=== PATIENT | male | born 1935 | race Caucasian/White ===

== ENCOUNTER 2017-03-19 13:46 | Observation (INO) | payer MEDICARE, BC ==
[2017-03-19 14:20] LABS: #Basophils 0.1 thou/uL (0.0-0.2); #Eosinphils 0.1 thou/uL (0.0-0.7); #Lymphocytes 1.1 thou/uL (1.20-3.40); #Monocytes 1.2 thou/uL (0.11-0.59); #Neutrophils 16.6 thou/uL (1.40-6.50); %Basophils 0.4 % (0.0-1.0); %Eosinophils 0.6 % (0.0-10.0); %Lymphocytes 5.7 % (21.0-51.0); %Monocytes 6.2 % (0.0-10.0); Hematocrit 44.1 % (42.0-52.0); Mean Platelet Volume 10.8 fL (7.4-10.4); Red Blood Cell (RBC) Count 4.76 mill/uL (4.70-6.10); White Blood Cell (WBC) Count 19.1 thou/uL (4.8-10.8)
[2017-03-19 14:44] LABS: ALT (SGPT) 9 U/L (8-55); AST (SGOT) 16 U/L (5-34); Alkaline Phosphatase 75 U/L (40-150); Anion Gap 15 mmol/L (10-20); BUN (Urea Nitrogen) 18 mg/dL (8.4-25.7); Bilirubin, Total 1.3 mg/dL (0.2-1.2); Calc. Creatinine Clearance 0 mL/min (70-130); Calcium 9.8 mg/dL (7.8-10.44); Carbon Dioxide 23 mmol/L (23-31); Chloride 104 mmol/L (98-107); Estimated GFR-MDRD 63; Globulin 3.4 g/dL (2.4-3.5); Protein, Total 7.7 g/dL (5.8-8.1)
--- NOTE | 2017-03-19 14:46 | RAD ---
PORTABLE AP CHEST: Date: 03-19-17 History: Wheezing, shortness of breath. Comparison: 05-16-16 FINDINGS: Single led left subclavian cardiac pacemaking device remains in place. Cardiac silhouette is enlarged . Pulmonary vasculature is the upper limits of normal. Lungs are otherwise clear. Vascular calcificat ions of the thoracic aorta. There are degenerative changes noted in the spine. No other interval robertson ge. IMPRESSION: Cardiomegaly without overt CHF. POS: [facility]
[2017-03-19 14:48] LABS: Troponin I 0.031 ng/mL (< 0.028)
[2017-03-19] MEDS ORDERED: Albuterol Sulfate 2.5 mg/3 ml Neb ONE (15:24)
[2017-03-19] MEDS ORDERED: Albuterol Sulfate 2.5 mg/0.5 ml Neb ONE (15:24)
[2017-03-19] MEDS ORDERED: Furosemide 40 MG/4 ML VIAL ONE (15:59)
[2017-03-19] MEDS ORDERED: methylPREDNISolone Sod Succ/PF 125 MG/2 ML VIAL ONE (15:59)
[2017-03-19 18:00] LABS: Troponin I 0.054 ng/mL (< 0.028)
[2017-03-19] MEDS ORDERED: Guaifenesin DM 100-10/5 ML UDCUP PO PRN (20:35)
[2017-03-19] MEDS ORDERED: HYDROcodone/Acetaminophen 10/325 mg Tablet PO PRN (20:35)
[2017-03-19] MEDS ORDERED: Dextrose 5% in Water 1,000 ML IV PRN (20:35)
[2017-03-19] MEDS ORDERED: Ondansetron ODT 4 MG TAB PO PRN (20:35)
[2017-03-19] MEDS ORDERED: Albuterol Sulfate 2.5 mg/3 ml Neb NEB PRN (20:35)
[2017-03-19] MEDS ORDERED: Gabapentin 300 MG CAP PO PRN (20:35)
[2017-03-19] MEDS ORDERED: Acetaminophen 325 MG TAB PO PRN (20:35)
[2017-03-19] MEDS ORDERED: Dextrose 50% Abboject 50 ML SYRINGE SLOW IVP PRN (20:35)
[2017-03-19] MEDS ORDERED: HYDROcodone/Acetaminophen 5/325 mg Tablet PO PRN (20:35)
[2017-03-19 20:40] LABS: Troponin I 0.045 ng/mL (< 0.028)
[2017-03-19] MEDS: Atorvastatin Calcium 20 MG TAB PO SCH (21:33)
[2017-03-19] MEDS: Apixaban 5 MG TAB PO SCH (21:33)
[2017-03-19] MEDS: Carvedilol 25 MG TAB PO SCH (21:34)
[2017-03-19] MEDS: INSULIN DETEMIR SC SCH (21:34)
[2017-03-19] MEDS: Famotidine 20 MG TAB PO SCH (21:34)
[2017-03-19] MEDS: ADMIXTURE FEE SC SCH (21:34)
[2017-03-20 00:44] VITALS: BMI 35.2
[2017-03-20 04:54] LABS: #Lymphocytes 0.9 thou/uL (1.20-3.40); #Monocytes 0.2 thou/uL (0.11-0.59); #Neutrophils 12.9 thou/uL (1.40-6.50); %Eosinophils 0.2 % (0.0-10.0); %Lymphocytes 6.6 % (21.0-51.0); %Monocytes 1.3 % (0.0-10.0); Red Blood Cell (RBC) Count 4.44 mill/uL (4.70-6.10); White Blood Cell (WBC) Count 14.1 thou/uL (4.8-10.8)
[2017-03-20 05:03] LABS: Anion Gap 12 mmol/L (10-20); BUN (Urea Nitrogen) 27 mg/dL (8.4-25.7); Calc. Creatinine Clearance 70 mL/min (70-130); Calcium 9.4 mg/dL (7.8-10.44); Carbon Dioxide 23 mmol/L (23-31); Chloride 103 mmol/L (98-107); Estimated GFR-MDRD 54
[2017-03-20] MEDS: HumaLOG 300 UNITS/3 ML VIAL SC PRN ×4 (05:17→21:14)
[2017-03-20] MEDS: Famotidine 20 MG TAB PO SCH ×2 (07:38→19:56)
[2017-03-20] MEDS: Apixaban 5 MG TAB PO SCH ×2 (07:38→19:55)
[2017-03-20] MEDS: Carvedilol 25 MG TAB PO SCH ×2 (07:38→19:56)
[2017-03-20] MEDS: Furosemide 40 MG TAB PO SCH (07:38)
[2017-03-20] MEDS: Clopidogrel Bisulfate 75 MG TAB PO SCH (07:38)
--- NOTE | 2017-03-20 09:32 | RAD ---
TWO VIEWS CHEST: Date: 03-20-17 Comparison: 05-16-16 History: COPD, leukocytosis. FINDINGS: Heart and mediastinal contours are stable. There is stable linear increased linear interstitial densi ty with pulmonary hyperinflation, consistent with the provided history of COPD. There is a single cruz d transvenous pacing device, stable. There is no pneumothorax or pleural fluid. No focal consolidatio n or alveolar edema. Multilevel thoracic spine degenerative change noted with disc space narrowing an d anterior osteophyte formation. IMPRESSION: Stable appearance of the chest. POS: [facility]
[2017-03-20] MEDS ORDERED: Furosemide 40 MG/4 ML VIAL SLOW IVP SCH (13:00)
--- NOTE | 2017-03-20 13:11 | CON ---
DATE OF CONSULTATION: 03/20/2017 SERVICE: Pulmonary Medicine REASON FOR CONSULTATION: Respiratory failure. HISTORY OF PRESENT ILLNESS: The patient is very pleasant with past medical history significant for m ild restrictive lung disease secondary to morbid obesity. He also has known heart disease. He was i n his usual state of health when he started having increasing shortness of breath. He also had dyspn ea on exertion and increasing orthopnea. He presented to the emergency department. He was given a d ose of Lasix and based on his recollection, peed very frequently for a long period of time. The next morning, he was actually much improved. On presentation, he had extensive wheezing. He is being tr eated for COPD exacerbations/acute bronchitis. That being said, at this time, he has returned to his usual state of health. PAST MEDICAL HISTORY: 1. Atrial fibrillation, chronic. 2. Chronic systolic and diastolic heart failure. 3. Hypertension. 4. Type 2 diabetes mellitus. 5. Gastroesophageal reflux disease. 6. Coronary artery disease, status post percutaneous coronary intervention. 7. Renal artery aneurysm. 8. Excision of skin cancer. 9. History of remote transient ischemic attack. PAST SURGICAL HISTORY: 1. Pacemaker placement. 2. Left foot surgery. 3. Pterygium excised from right eye. 4. Cardiac stent x2 in 2012. SOCIAL HISTORY: Negative for alcohol, tobacco or significant illicit drug use. He has over a 50-pac k-year history of smoking. He has no exposure to chemicals, dust, asbestosis or tuberculosis. FAMILY HISTORY: Noncontributory. ALLERGIES: No drug allergies. MEDICATIONS LIST: A list or his inpatient medications were reviewed. Multiple small updates were ma de. REVIEW OF SYSTEMS: Review of systems including general, head, ears, eyes, nose, throat, cardiovascul ar, respiratory, GI, , musculoskeletal, neurologic and skin is negative except as mentioned in the HPI. PHYSICAL EXAMINATION: VITAL SIGNS: Afebrile. Pulse 70, blood pressure 138/63, respirations 20, saturation 94% on room air . GENERAL: The patient is awake, alert, in no apparent distress. LUNGS: There is excellent air entry. I do not appreciate a prolonged expiratory phase. Rhonchi are present at the end of inspiration. No wheezing is appreciated. Faint crackles are evident. HEART: Normal rate, irregular. ABDOMEN: Soft, nontender, nondistended. Bowel sounds positive. MUSCULOSKELETAL: No cyanosis or clubbing. There is 1-2+ pitting in the left lower extremity. There is trace pitting in the right lower extremity. GENITOURINARY: No Garcia. LABORATORY DATA: WBC 14.1, hemoglobin 12.7, platelets 129,000. Prior to initiating steroids, his [facility] blood cell count was normal. INR 1.2. Creatinine 1.28, which is close to his baseline. Basic m etabolic profile is otherwise unremarkable. Troponin 0.045. BNP slightly elevated at 197. Liver fu nction studies are unremarkable except for total bilirubin of 1.3. Hemoglobin A1c 7.2. TSH was prev iously 1.68. Influenza A and B is unremarkable. IMAGING: Chest x-ray demonstrates no acute cardiopulmonary abnormality. On the previous chest x-ray , there was a little bit of cephalization of the bilateral lung dickerson. The lung volumes truthfully are not hyperexpanded. The patient just happens to be extraordinarily tall. There is no intracardia c space or significant flattening of the diaphragm. ASSESSMENT: 1. Acute on chronic systolic and diastolic heart failure. 2. Atrial fibrillation. 3. Acute bronchitis, possible. 4. Mild volume restriction secondary to body habitus without chronic obstructive pulmonary disease. PLAN: The patient will be transitioned over to p.o. steroids which can be interrupted after a total duration of 3 more days. Antibiotics will be limited to 5 days. Ultimately, once the patient arrive s at [facility], he can be considered for transition out of the hospital. I will provide him with a o ne-time dose of 40 mg of Lasix. In the outpatient setting, he may need a slightly larger dose of Las ix to be used on a daily basis. I will continue to follow while the patient remains in house, but my suspicion is he will be discharged in the morning.
--- NOTE | 2017-03-20 16:28 | PDOC.PN ---
- Subjective Encounter Start Date: 03/20/17 Encounter Start Time: 08:45 weaned off o2, breathing is much better. Seen by pulm after i visited the firs ttime and before the 2nd and third. Pulm wants to keep overnight, diurese a little. Suspects more CHF related. PFTs reviewed, mild restriction due to obesity, but no obstruction. nevertheless, pt reportedly audibly wheezing on presentation, cleared by the time o saw him. no fevers or chills, no N/.V/D/C. Pt wanting to stay until tomorrow 10 point ROS performed except as per HPI - Objective Resuscitation Status: Resuscitation Status FULL:Full Resuscitation MAR Reviewed: Yes Vital Signs & Weight: Vital Signs (12 hours) Temp Pulse Resp BP Pulse Ox 03/20/17 15:24 97.5 F L 64 18 150/67 H 93 L 03/20/17 11:30 97.3 F L 70 20 138/63 94 L 03/20/17 10:12 84 16 96 03/20/17 09:03 60 133/68 03/20/17 07:47 97.5 F L 78 16 03/20/17 07:15 97.5 F L 78 16 198/73 H 93 L 03/20/17 06:35 95 03/20/17 06:30 71 16 95 03/20/17 05:11 97.5 F L 65 18 172/74 H 96 Weight Weight 238 lb 11.2 oz I&O: 03/19/17 03/20/17 03/21/17 06:59 06:59 06:59 Intake Total 480 240 Output Total 325 1000 Balance 155 -760 Result Diagrams: 03/20/17 04:05 03/20/17 04:05 Additional Labs: Accuchecks 03/20/17 03/19/17 10:59 21:39 POC Glucose 287 H 302 H Radiology Reviewed by me: Yes EKG Reviewed by me: Yes Phys Exam - Physical Examination Constitutional: NAD HEENT: PERRLA, moist MMs, sclera anicteric, oral pharynx no lesions Neck: no nodes, no JVD, supple, full ROM Respiratory: no wheezing, no rales, clear to auscultation bilateral low pitched end-expiratory rhonchi heard Cardiovascular: RRR, no significant murmur, no rub Gastrointestinal: soft, non-tender, no distention, positive bowel sounds Musculoskeletal: pulses present, edema present Neurological: non-focal, normal sensation, moves all 4 limbs Lymphatic: no nodes Psychiatric: normal affect, A&O x 3 Skin: no rash, normal turgor, cap refill <2 seconds Dx/Plan - Plan * .
[2017-03-20] MEDS: Atorvastatin Calcium 20 MG TAB PO SCH (19:55)
[2017-03-20] MEDS: ADMIXTURE FEE SC SCH (21:14)
[2017-03-20] MEDS: INSULIN DETEMIR SC SCH (21:14)
[2017-03-20 23:29] VITALS: TEMP 97.9
[2017-03-21] MEDS: HumaLOG 300 UNITS/3 ML VIAL SC PRN (06:21)
[2017-03-21 07:50] VITALS: BP 145/73
[2017-03-21] MEDS ORDERED: predniSONE 20 MG TAB PO SCH (08:00)
[2017-03-21] MEDS: Apixaban 5 MG TAB PO SCH (08:04)
[2017-03-21] MEDS: Furosemide 40 MG TAB PO SCH (08:05)
[2017-03-21] MEDS: Carvedilol 25 MG TAB PO SCH (08:05)
[2017-03-21] MEDS: Clopidogrel Bisulfate 75 MG TAB PO SCH (08:05)
[2017-03-21] MEDS: Famotidine 20 MG TAB PO SCH (08:05)
--- NOTE | 2017-03-21 12:42 | DIS ---
DATE OF ADMISSION: 03/19/2017 DATE OF DISCHARGE: 03/21/2017 PRIMARY CARE PHYSICIAN: Cory Ayala M.D. PRIMARY CHANGER FIXER: Cristian Miller M.D. DISCHARGE DIAGNOSES: 1. Acute on chronic systolic congestive heart failure. 2. Mild restrictive lung disease secondary to severe obesity. 3. History of cerebrovascular disease with stroke in 2014. 4. Diabetes mellitus type 2, insulin-dependent. 5. Hypertension. 6. Paroxysmal atrial fibrillation. 7. Renal artery aneurysm, stable. 8. Gastroesophageal reflux disease, chronic. 9. History of skin cancer. 10. History of chronic right eye tumor. CONSULTATIONS: Dr. Cristian Miller with Pulmonary. PROCEDURES: Echocardiogram on 03/19/2017 that showed EF 45%-50%, moderate mitral regurgitation, mode rate to severe tricuspid regurgitation. HOSPITAL COURSE: Mr. Sinclair is a pleasant 81-year-old white male who developed increasing shortness of breath over a couple of week period, certainly noted to be worse in the last 24 hours or so. He n otes it first started when he went to a casino in [place] and walking to the smoke-filled building. He got acutely worse today the morning of admission. Went to his primary care physician and was note d to be audibly wheezing and was sent to the emergency department for evaluation. There, he was found to be hypoxic and in some respiratory distress. He was in atrial fibrillation wi th RVR and subsequently we were called for admit. HOSPITAL COURSE: The patient was seen and examined in the emergency department and placed in observa tion by me. He met sepsis criteria, though he had recently been on steroids, likely elevated white b lood cell count. He was watched overnight, serial cardiac biomarkers were negative. A repeat echoca rdiogram was done that actually showed improvement from his labs in terms of ejection fraction and du e to his initial presentation with wheezing, was started on steroids, nebulizer treatments, and levof loxacin. Overnight 03/19/2017 to 03/20/2017, the patient improved. He was weaned off oxygen. He has some terence et, but present rhonchus breathing on the left hand side. He was seen by Pulmonary and his pulmonary functions were reviewed. At that time, there was no evidence of any obstruction. Dr. Miller noted that this is more related to acute on chronic systolic CHF. He was given some Lasix and watched ove r one more night. Today, his breathing slightly better. He has been urinating well. He has had no chest pain and was otherwise stable for discharge with outpatient followup. The patient was seen and examined on the day of discharge. Discharge plan and disposition was discussed with the patient fac e to face at the bedside. DISCHARGE MEDICATIONS: 1. Eliquis 5 mg p.o. b.i.d. 2. Lipitor 20 mg p.o. at bedtime. 3. Carvedilol 25 mg p.o. b.i.d. 4. Plavix 75 mg daily. 5. Lasix 40 mg p.o. daily. New medication prescription sent with 2 refills for a month supply. 6. Lantus 46 units subcu b.i.d. 7. Levaquin 500 mg p.o. daily for 3 more days. 8. Prednisone 20 mg p.o. daily for 3 more days. Prescription sent for those. 9. Zantac 150 mg p.o. b.i.d. FOLLOWUP APPOINTMENTS: 1. Primary care physician in [address] Miller in 2-3 weeks. DISCHARGE ACTIVITY: Per cardiopulmonary limits. DISCHARGE DIET: Diabetic, heart healthy diet with low sodium. Patient was instructed to keep his followup appointments. He was asked to return to emergency depart ment for worsening status or decompensation at home.
--- NOTE | 2017-03-21 13:50 | HP ---
DATE OF ADMISSION: 03/19/2017 PRIMARY CARE PHYSICIAN: Cory Ayala M.D. CHIEF COMPLAINT: Shortness of breath and wheezing. HISTORY OF PRESENT ILLNESS: Mr. Sinclair is a very pleasant 81-year-old white male with a history of c erebrovascular disease, diabetes, hypertension, and paroxysmal atrial fibrillation who presented to e mergency department after being sent by his primary care physician to the ER. Patient stated that he went to the [facility] in [place] on 03/04/2017. Immediately upon arriving the re, he noticed the area was smoke-filled, he developed rhinorrhea and hacking cough. He stayed there for 2 days and then came back on 03/06/2017. He went to his primary care physician's office and was given a course of doxycycline and a shot of steroids, I suspect was probably Kenalog. He initially got better, but last couple of days, it gotten worse. Today, he got more acutely short of breath and started having some audible wheezing. He presented to his primary care physician's office and was triaged and sent to the emergency department for more ur gent evaluation. He denies any sputum production, no fevers or chills, no chest pain, or night sweats. He has had no diarrhea or constipation. In the Emergency Department, the nurses report he was audibly wheezing on arrival. He was given Solu -Medrol, antibiotics, and nebulizer treatments and we were called for admission. On arrival, his lungs were clear, but he was in atrial fibrillation with rapid ventricular response. PAST MEDICAL HISTORY: 1. Severe vascular disease with stroke in 2014. 2. Diabetes mellitus type 2, insulin-dependent. 3. Hypertension. 4. Paroxysmal atrial fibrillation. 5. Renal artery aneurysm. 6. GERD. 7. History of skin cancer status post removal. 8. Right eye tremor. PAST SURGICAL HISTORY: Includes, 1. Pacemaker placement in 2007. 2. Left foot surgery on the bones. 3. Right eye surgery for a pterygium. 4. He had a PCI with stent x2 on separate occasions and bilateral cataract replacement. HOME MEDICATIONS: 1. Eliquis 5 mg p.o. b.i.d. 2. Lipitor 20 mg p.o. at bedtime. 3. Coreg 25 mg p.o. b.i.d. 4. Plavix 75 mg daily. 5. Lasix 40 mg daily. 6. Gabapentin 300 mg p.o. t.i.d. p.r.n. 7. Lantus 46 units subcu b.i.d. 8. Zantac 150 mg p.o. b.i.d. 9. Nitroglycerin sublingual 0.4 mg sublingual every 5 minutes p.r.n. chest pain. 10. Recently on doxycycline for a 7-day course and recently had a steroid injection. ALLERGIES: NKDA. FAMILY HISTORY: Negative for clotting or bleeding disorder, no immune dysfunction. SOCIAL HISTORY: Occasional for social alcohol every other week or so, has a history of tobacco in th e past and smoked up to 2 packs a day for some 20-30 years. He quit many years ago. He is , monogamous. He has no recent travel other than to [place]. REVIEW OF SYSTEMS: A 10-point review of systems was performed, negative for all other systems except stated per HPI. PHYSICAL EXAMINATION: VITAL SIGNS: Temperature 99.4, pulse 111, blood pressure 187/82, respiratory rate 25, satting 95% on 2 liters. GENERAL: He is awake. He is alert. He is oriented x3. He is an obese white male, appears to be in no acute distress. HEENT: Normocephalic, atraumatic. His pupils are equal and round bilaterally. He had bilateral pse udophakia. He has a "chronic twitch of his right eye." Mucous membranes are moist. He has no visib le lesions or thrush. NECK: Supple, without lymphadenopathy, JVD, or thyromegaly. CHEST: Lungs are currently clear to auscultation bilaterally. He has some faint bibasilar crackles, no rhonchi, and no wheezing. There is no prolonged expiratory phase. CARDIOVASCULAR: He is tachycardic and irregularly irregular. He has no audible appreciable murmurs. He does have a 3/6 holosystolic murmur best heard over the right upper sternal border. ABDOMEN: Obese, nontender, nondistended. He has had normoactive bowel sounds. There is no rebound, rigidity, or guarding. He is too obese for me to be able to palpate internal organs. EXTREMITIES: Showed 2+ bilateral lower extremity edema, left more than right. No cyanosis. SKIN: Warm, moist, and well perfused without any rashes or lesions. NEUROLOGIC: Shows cranial nerves II-XII grossly intact without any focal neurologic deficit. He has normal speech pattern, 5/5 strength in all 4 of his extremities. MUSCULOSKELETAL: Large joints normal to inspection. He has no inflamed or hot joints and no palpabl e joint effusions. LABORATORY DATA: CMP is within normal limits. Creatinine 1.12, sodium 137. Liver functions are nor mal. Total bilirubin is 1.3. His CBC showed a white count of 19.1 with 87% granulocytes and no band s, hemoglobin 14.1, hematocrit of 44.1, platelet 162,000. His chest x-ray showed cardiomegaly and no evidence of pulmonary edema, no Rip B lines and no infiltrates. ASSESSMENT AND PLAN: 1. Acute hypoxemic respiratory failure: Patient is acting like someone with chronic obstructive pul monary disease. He saw Dr. Miller a few months ago and had PFTs that revealed only mild restrictive pattern. Nevertheless, we will start him on steroids, nebulizer treatments, and some levofloxacin. He received Rocephin and azithromycin in the emergency department. We will ask Dr. Miller to evalu ate for his opinion. 2. Possible acute exacerbation of chronic obstructive pulmonary disease: Not in line with his previ ous testing. We will get Dr. Yeh's input. 3. Bilateral lower extremity edema, normal for the patient he says. In looking back, he did have an echocardiogram with some systolic chronic congestive heart failure. We will get a 2D echocardiogram . 4. History of paroxysmal atrial fibrillation. He is in atrial fibrillation now. He has also had ra pid ventricular response. Continue home medications including Coreg. We will reevaluate overnight. Watch him on telemetry. 5. Hypertension, essential. Continue home medications. 6. Diabetes mellitus type 2, insulin-dependent. We will continue his insulin and sliding scale for correction. Place the patient in observation overnight, I will monitor him on telemetry. We will ge t Pulmonary's input. We will follow up on the recommendations.
== END 2017-03-21 10:14 | disposition home or self-care (01) ==
LOC: ERS 13:46 → ERHOLD 16:02 → 2SW 20:04
PROVIDERS: ADMIT Internal Medicine Infectious Disease; ATTEND Internal Medicine Infectious Disease
DX: I11.0 Hypertensive heart disease with heart failure (principal); I50.23 Acute on chronic systolic (congestive) heart failure; J98.4 Other disorders of lung; E11.9 Type 2 diabetes mellitus without complications; I48.0 Paroxysmal atrial fibrillation; I72.2 Aneurysm of renal artery; K21.9 Gastro-esophageal reflux disease without esophagitis; D49.89 Neoplasm of unspecified behavior of other specified sites; I25.10 Atherosclerotic heart disease of native coronary artery without angina pectoris; F17.210 Nicotine dependence, cigarettes, uncomplicated; E66.01 Morbid (severe) obesity due to excess calories; Z68.39 Body mass index [BMI] 39.0-39.9, adult; Z79.4 Long term (current) use of insulin; Z79.899 Other long term (current) drug therapy; Z95.0 Presence of cardiac pacemaker; Z95.5 Presence of coronary angioplasty implant and graft; Z98.890 Other specified postprocedural states; Z85.828 Personal history of other malignant neoplasm of skin; Z86.73 Personal history of transient ischemic attack (TIA), and cerebral infarction without residual deficits
CPT/HCPCS: 71010; 71020; 80048; 80053; 82553; 82962 ×3; 83880; 84484 ×2; 85025 ×2; 87804 ×2; 93005; 93306; 94640 ×3; 94760; 96374; 96375; 96376 ×2; 99285; G0378; 36415; 36416; J1815; J1940; J2920; J2930; J7506; J7611; J7620

== ENCOUNTER 2017-05-21 11:45 | Inpatient (IN) | payer MEDICARE, BC ==
--- NOTE | 2017-05-21 12:21 | RAD ---
PORTABLE CHEST: Date: 05/21/17 HISTORY: Cough. COMPARISON: Portable film of 03/19/17. FINDINGS: Heart size is mildly prominent, but stable. Single lead pacer again noted. Lungs appear clear of infi ltrate. Vascular markings are upper normal and stable. IMPRESSION: No acute interval change noted. POS: [facility]
[2017-05-21 12:33] LABS: #Eosinphils 0.2 thou/uL (0.0-0.7); #Lymphocytes 1.4 thou/uL (1.20-3.40); #Monocytes 0.8 thou/uL (0.11-0.59); #Neutrophils 6.3 thou/uL (1.40-6.50); %Basophils 0.4 % (0.0-1.0); %Eosinophils 2.2 % (0.0-10.0); %Lymphocytes 15.8 % (21.0-51.0); %Monocytes 9.2 % (0.0-10.0); %Neutrophils 72.5 % (42.0-75.0); Hemoglobin 8.8 g/dL (14.0-18.0); Mean Corpuscular HGB CONC 31.2 g/dL (32.0-36.0); Mean Corpuscular Hemoglobin 27.2 pg (27.0-31.0); Mean Corpuscular Volume 87.3 fl (80.0-94.0); Mean Platelet Volume 9.5 fL (7.4-10.4); Platelet Count 189 thou/uL (130-400); RBC Distribution Width 15.6 % (11.5-14.5); Red Blood Cell (RBC) Count 3.22 mill/uL (4.70-6.10); White Blood Cell (WBC) Count 8.7 thou/uL (4.8-10.8)
[2017-05-21 12:59] LABS: ALT (SGPT) 10 U/L (8-55); AST (SGOT) 13 U/L (5-34); Albumin 3.6 g/dL (3.4-4.8); Alkaline Phosphatase 65 U/L (40-150); Anion Gap 13 mmol/L (10-20); BUN (Urea Nitrogen) 22 mg/dL (8.4-25.7); Bilirubin, Total 0.6 mg/dL (0.2-1.2); CK (CPK) 133 U/L (30-200); Calc. Creatinine Clearance 0 mL/min (70-130); Calcium 9.2 mg/dL (7.8-10.44); Carbon Dioxide 22 mmol/L (23-31); Chloride 108 mmol/L (98-107); Estimated GFR-MDRD 60; Glucose 143 mg/dL (83-110); Potassium 4.3 mmol/L (3.5-5.1); Protein, Total 6.6 g/dL (5.8-8.1); Sodium 139 mmol/L (136-145)
[2017-05-21 13:02] LABS: CKMB 2.5 ng/mL (0-6.6); Troponin I 0.043 ng/mL (< 0.028)
[2017-05-21] MEDS ORDERED: Aspirin 325 MG TAB ONE (13:48)
[2017-05-21] MEDS ORDERED: Furosemide 40 MG TAB ONE (13:48)
--- NOTE | 2017-05-21 14:53 | HP ---
PRIMARY CARE PHYSICIAN: Cory Ayala M.D. REASON FOR ADMISSION: Acute on chronic systolic and diastolic congestive heart failure exacerbation, bronchitis, symptomatic anemia. HISTORY OF PRESENT ILLNESS: An 81-year-old male who has underlying history of systolic heart failure . His EF was 45% to 50%. He also has underlying moderate aortic regurgitation and severe tricuspid regurgitation and moderate mitral regurgitation. The patient is on 2 different blood thinner medicat ions with Plavix and Eliquis. He came to the emergency room with complaint of increasing shortness o f breath, which is getting worse with lying down position. The patient also has cough productive sca nt amount of sputum. The patient also reports that for the last several days, he noticed black tarry stool. He denies any epigastric pain. He denies any vomiting. He denies any epigastric abdominal pain. He denies any hematemesis. He denies any nausea or vomiting. The patient also has increased bilateral lower extremity edema. He gained weight. He is bothered by cough and shortness of breath and that was affecting his quality of life. He was feeling lately mor e fatigued, dizzy, and weak. The patient reports that he is not on any iron supplement, but his stool is black. His hemoglobin to day in our hospital is 8.8. When he was discharged from our hospital in February, at that time, his hemoglobin was 12.7. Today, his troponin is elevated as well as BNP is elevated. When I saw this pa tient at that time, the patient was wheezing in his both lung dickerson. The patient's was present at bedside. The patient denies any UTI symptoms. He denies any fever, chills, runny nose, sore throat, or flu-li ke illness. REVIEW OF SYSTEMS: Please see my HPI for pertinent positives and negatives. All other review of sys tems reviewed and negative except as mentioned in the HPI. Constitutional: Weight loss or gain, ability to conduct usual activities. Skin: Rash, itching. Eyes: Double vision, pain. ENT/Mouth: Nose bleeding, neck stiffness, pain, tenderness. Cardiovascular: Palpitations, dyspnea on exertion, orthopnea. Respiratory: Shortness of breath, wheezing, cough, hemoptysis, fever or night sweats. Gastrointestinal: Poor appetite, abdominal pain, heartburn, nausea, vomiting, constipation, or diarrhea. Genitourinary: Urgency, frequency, dysuria, nocturia. Musculoskeletal: Pain, swelling. Neurologic/Psychiatric: Anxiety, depression. Allergy/Immunologic: Skin rash, bleeding tendency. ALLERGIES: No known drug allergies. CURRENT HOME MEDICATIONS: Coreg 25 mg p.o. twice daily, Lipitor 10 mg p.o. at bedtime, Lasix 40 mg p .o. daily, Plavix 75 mg p.o. daily, ranitidine 150 mg p.o. daily, gabapentin 300 mg 3 times daily, El iquis 5 mg p.o. daily. PAST MEDICAL HISTORY: Chronic atrial fibrillation, chronic anticoagulation with Eliquis, hypertensio n, diabetes type 2, dyslipidemia, gastroesophageal reflux disease, coronary artery disease with stent , history of skin cancer, renal artery aneurysm, history of embolic CVA. PAST SURGICAL HISTORY: Pacemaker placement, left foot surgery, pterygium removal from right eye, car diac catheterization and stent placement in 2012. PAST PSYCHIATRIC HISTORY: Reviewed and negative. SOCIAL HISTORY: The patient is . He drinks alcohol socially every week. He is a former smok er. He quit smoking more than 10 years ago. He is retired and lives at home with his . FAMILY HISTORY: Positive for throat cancer in his father. No family history of coronary artery dise ase, stroke, or cancer. EMERGENCY ROOM COURSE: The patient was given Lasix 40 mg, aspirin 324 mg, and DuoNeb. PHYSICAL EXAMINATION: VITAL SIGNS: On arrival, blood pressure 157/73, pulse 88, respiratory rate 26, temperature 97.8, sat uration 95% on room air, weight 122.4 kilograms. GENERAL: The patient is currently alert, awake, mild distress due to cough and shortness of breath. HEAD: Normocephalic, atraumatic. The patient does have residual right facial droop from previous CV A. EYES: Pupils round, reactive to light. Extraocular muscles intact. ENT: Oropharynx within normal limits. Pale mucous membranes. No pharyngeal erythema. No exudate. NECK: Supple, no JVD, no thyromegaly, no carotid bruit, no jugular venous distention. LUNGS: Bilateral end expiratory wheezing. Few rales noted. CARDIAC: S1, S2 irregular. Systolic murmur present parasternal as well as diastolic murmur present at apex. ABDOMEN: Morbid obesity limiting examination. No peritoneal sign. No organomegaly. No mass. No s uprapubic tenderness. BACK: Unremarkable. No CVA tenderness. EXTREMITIES: Upper extremity passive movements of all joints are normal. Lower extremity: Bilatera l +3 pitting edema noted both lower extremities. Good distal pulsation. SKIN: No skin rash. HEMATOLOGICAL: No lymphadenopathy. PSYCHIATRIC: Normal affect. NEUROLOGIC: Nonfocal examination. SIGNIFICANT LABORATORY DATA: EKG showing pacemaker rhythm, infrequent frequent premature ventricular complexes. Chest x-ray based on my review, cardiomegaly, no pulmonary vascular congestion. CBC: W BC 8.7, hemoglobin 8.8, platelets 189. BMP: Sodium 139, potassium 4.3, chloride 108, carbon dioxide 22, anion gap 13, BUN 22, creatinine 1.17, glucose 143, calcium 9.2. LFT: AST 13, ALT 10, alkaline phosphatase 65, albumin 3.6. CK 133, CK-MB 2.5, troponin I 0.043, BNP 483.3. ASSESSMENT AND PLAN: 1. Acute on chronic systolic and diastolic congestive heart failure. This patient has elevated BNP, though his chest x-ray does not report pulmonary vascular congestion, but this patient clinically miranda s significant wheezing bilaterally and scattered rales. He has bilateral lower extremity edema as we ll as orthopnea, cough, and dyspnea on exertion. All this contributes to his worsening of underlying heart failure. I am suspecting that his worsening anemia might have precipitated his heart failure as well. At this point, the patient will require admission. We will continue DuoNeb therapy every 4 hourly. We will continue Lasix 40 mg IV b.i.d. Fluid restriction 1500 mL per day. We will also gi ve him a dose of Zaroxolyn for diuresis. We will continue half-dose of Coreg 12.5 mg twice daily. D uring this admission, we will consider adding RAJIV inhibitor and ARB. We will monitor closely on tele metry floor. We will monitor input and output chart, daily weight. We will replace electrolytes as needed basis. 2. Elevated troponin. Looking at his old record, the patient has chronically elevated troponin, lik rafael due to demand ischemia. We will do serial cardiac enzymes x3 to rule out acute coronary syndrome . 3. Anemia, symptomatic. This patient has generalized weakness, fatigue, dizziness. His hemoglobin significantly dropped from 12.7 in February and 8.8 today. This patient also gives history of melano tic stool. We will check stool for guaiac. We will check ferritin level. We will repeat CBC tomorr ow. If stool for guaiac is positive, then we will consider GI evaluation. We will continue with Pro tonix 40 mg p.o. daily. Until we verify and rule out gastrointestinal bleed, we will hold on antipla telet therapy including Plavix and basis. 4. Dyslipidemia. We will continue Lipitor 20 mg p.o. at bedtime. 5. Coronary artery disease with history of stent. At this point, because of suspected bleeding, we will hold Plavix and Eliquis therapy. We will continue half dose of Coreg because of wheezing along with statin therapy. 6. Moderate mitral regurgitation, aortic regurgitation, and tricuspid regurgitation based on echocar diography. 7. Morbid obesity. Dietary education given, weight loss education given. 8. Atrial fibrillation, chronic. Currently rate controlled. We will hold on anticoagulation therap y because of suspected melanotic stool. 9. Hypertension. We will continue nitropatch q.8 hourly along with Lasix, Zaroxolyn, and Coreg. We will also consider adding RAJIV inhibitor and ARB during this admission. 10. Gastroesophageal reflux disease. We will continue Pepcid 20 mg p.o. b.i.d. 11. Peripheral neuropathy. We will continue gabapentin 300 mg p.o. 3 times daily. 12. Deep venous thrombosis prophylaxis. Sequential compression device boots only. 13. Gastrointestinal prophylaxis, Pepcid 20 mg p.o. b.i.d. 14. Code status: The patient is FULL CODE. The patient's is surrogate decision maker. Disposition plan based on clinical course. We are expecting patient's stay in the hospital more than 2 midnights. Plan of care discussed with the patient in detail.
[2017-05-21] MEDS ORDERED: Milk Of Magnesia 30 ML UDCUP PO PRN (17:46)
[2017-05-21] MEDS ORDERED: Eucerin (Mineral Oil/Petrolatum,White) 30 gm Jar TOP PRN (17:46)
[2017-05-21] MEDS ORDERED: Diabetic Tussin 200 MG/10 ML UDCUP PO PRN (17:46)
[2017-05-21] MEDS ORDERED: Artificial Tear Sol 15 ML BOT EA EYE PRN (17:46)
[2017-05-21] MEDS ORDERED: Dextrose 5% in Water 1,000 ML IV PRN (17:46)
[2017-05-21] MEDS ORDERED: Dextrose 50% Abboject 50 ML SYRINGE SLOW IVP PRN (17:46)
[2017-05-21] MEDS ORDERED: Nitroglycerin 0.4 MG TAB (25 Tab Bottle) SL PRN (17:46)
[2017-05-21] MEDS ORDERED: Acetaminophen 325 MG TAB PO PRN (17:46)
[2017-05-21] MEDS ORDERED: Chloraseptic Spray 180 ml Bottle PO PRN (17:46)
[2017-05-21] MEDS ORDERED: hydrALAZINE 20 MG/ML VIAL SLOW IVP PRN (17:46)
[2017-05-21] MEDS ORDERED: Ondansetron ODT 4 MG TAB PO PRN (17:46)
[2017-05-21] MEDS ORDERED: Zolpidem Tartrate 5 MG TAB PO PRN (17:46)
[2017-05-21] MEDS ORDERED: Sodium Chloride 0.65% Nasal 44 ML BOT EA NARE PRN (17:46)
[2017-05-21] MEDS ORDERED: Senokot 8.6 MG TAB PO PRN (17:46)
[2017-05-21] MEDS ORDERED: HYDROcodone/Acetaminophen 5/325 mg Tablet PO PRN (17:46)
[2017-05-21] MEDS ORDERED: Loratadine 10 MG TAB PO PRN (17:46)
[2017-05-21] MEDS ORDERED: Mag-Al 1200 mg/1200 mg/30 ML UDCUP PO PRN (17:46)
[2017-05-21] MEDS ORDERED: Loperamide HCl 2 MG CAP PO PRN (17:46)
[2017-05-21] MEDS ORDERED: Ondansetron HCl/PF 4 MG/2 ML Vial IVP PRN (17:46)
[2017-05-21 17:51] VITALS: BMI 40.3
[2017-05-21] MEDS ORDERED: Gabapentin 300 MG CAP PO SCH (18:15)
[2017-05-21 18:36] LABS: CKMB 2.7 ng/mL (0-6.6); Troponin I 0.045 ng/mL (< 0.028)
[2017-05-21 19:47] LABS: Iron Binding Capacity, Total 325 mcg/dL (261-462)
[2017-05-21 19:48] LABS: Iron 13 ug/dL (65-175)
[2017-05-21] MEDS ORDERED: Atorvastatin Calcium 20 MG TAB PO SCH (21:00)
[2017-05-21 21:13] LABS: CKMB 2.2 ng/mL (0-6.6)
[2017-05-21] MEDS: Cefdinir 300 MG CAP PO SCH (23:44)
[2017-05-21] MEDS: Carvedilol 6.25 MG TAB PO SCH (23:44)
[2017-05-21] MEDS: guaiFENesin ER 600 MG TAB PO SCH (23:44)
[2017-05-21] MEDS: Famotidine/PF 20 mg/2ml Vial SLOW IVP SCH (23:44)
[2017-05-22 04:58] LABS: #Eosinphils 0.1 thou/uL (0.0-0.7); #Lymphocytes 0.8 thou/uL (1.20-3.40); #Monocytes 0.3 thou/uL (0.11-0.59); #Neutrophils 8.6 thou/uL (1.40-6.50); %Basophils 0.1 % (0.0-1.0); %Eosinophils 0.7 % (0.0-10.0); %Monocytes 2.7 % (0.0-10.0); %Neutrophils 88.6 % (42.0-75.0); Hemoglobin 8.6 g/dL (14.0-18.0); Mean Corpuscular HGB CONC 30.6 g/dL (32.0-36.0); Mean Corpuscular Hemoglobin 26.5 pg (27.0-31.0); Mean Corpuscular Volume 86.7 fl (80.0-94.0); Mean Platelet Volume 9.8 fL (7.4-10.4); Platelet Count 187 thou/uL (130-400); RBC Distribution Width 15.8 % (11.5-14.5); Red Blood Cell (RBC) Count 3.26 mill/uL (4.70-6.10); White Blood Cell (WBC) Count 9.7 thou/uL (4.8-10.8)
[2017-05-22 05:23] LABS: Anion Gap 13 mmol/L (10-20); BUN (Urea Nitrogen) 20 mg/dL (8.4-25.7); Calc. Creatinine Clearance 91 mL/min (70-130); Calcium 9.5 mg/dL (7.8-10.44); Carbon Dioxide 23 mmol/L (23-31); Chloride 105 mmol/L (98-107); Estimated GFR-MDRD 64; Glucose 219 mg/dL (83-110); Magnesium 2.1 mg/dL (1.6-2.6); Potassium 4.4 mmol/L (3.5-5.1); Sodium 137 mmol/L (136-145); Uric Acid 7.8 mg/dL (3.5-7.2)
[2017-05-22] MEDS ORDERED: Furosemide 40 MG/4 ML VIAL SLOW IVP SCH (06:00)
[2017-05-22] MEDS ORDERED: Sodium Chloride 0.9% 10 ML ONE (07:27)
[2017-05-22] MEDS ORDERED: Metolazone 5 MG TAB PO SCH (08:30)
[2017-05-22] MEDS: Carvedilol 6.25 MG TAB PO SCH ×2 (08:39→21:32)
[2017-05-22] MEDS: Cefdinir 300 MG CAP PO SCH ×2 (08:39→21:32)
[2017-05-22] MEDS: Lisinopril 5 MG TAB PO SCH (08:40)
[2017-05-22] MEDS: Gabapentin 300 MG CAP PO SCH ×3 (08:40→21:33)
[2017-05-22] MEDS: Famotidine/PF 20 mg/2ml Vial SLOW IVP SCH ×2 (08:41→21:32)
[2017-05-22] MEDS: guaiFENesin ER 600 MG TAB PO SCH ×2 (08:41→21:33)
--- NOTE | 2017-05-22 13:33 | PDOC.PN ---
- Subjective Encounter Start Date: 05/22/17 Encounter Start Time: 13:20 Subjective: f/u for ? CHF, symptomatic anemia and heme + stools. Less SOB today -: but feels weak. No CP, stool seems browner today. - Objective Resuscitation Status: Resuscitation Status FULL:Full Resuscitation MAR Reviewed: Yes Vital Signs & Weight: Vital Signs (12 hours) Temp Pulse Resp BP BP Pulse Ox 05/22/17 12:08 98.8 F 66 19 143/65 H 95 05/22/17 10:43 80 16 05/22/17 08:40 70 164/86 H 05/22/17 08:39 164/86 H 05/22/17 08:35 98.2 F 74 19 164/86 H 95 05/22/17 07:23 70 18 05/22/17 03:41 97.9 F 64 20 147/65 H 93 L 05/22/17 03:18 69 18 94 L Weight Weight 265 lb I&O: 05/21/17 05/22/17 05/23/17 06:59 06:59 06:59 Intake Total 240 120 Output Total 950 Balance 240 -830 Result Diagrams: 05/22/17 04:07 05/22/17 04:07 Additional Labs: Accuchecks 05/22/17 05/22/17 11:39 06:26 POC Glucose 328 H 221 H EKG Reviewed by me: Yes (Tele - A-fib in 90's) Phys Exam - Physical Examination Constitutional: NAD HEENT: PERRLA, oral pharynx no lesions Neck: no JVD, supple diminished in bases Cardiovascular: irregular Gastrointestinal: soft, non-tender, no distention, positive bowel sounds Musculoskeletal: pulses present, edema present Neurological: normal sensation, moves all 4 limbs Psychiatric: A&O x 3 Skin: normal turgor, cap refill <2 seconds Dx/Plan (1) GI bleed Code(s): K92.2 - GASTROINTESTINAL HEMORRHAGE, UNSPECIFIED Status: Acute Comment: Likely due to Plavix and Eliquis, PPI, consult GI for endoscopy, serial H/H (2) Anemia due to blood loss, acute Code(s): D62 - ACUTE POSTHEMORRHAGIC ANEMIA Status: Acute Comment: symptomatic anemia secondary to acute/subacute loss, hold all NSAIDs and anticoagulation, Protonix 40mg daily, GI consult (3) CKD (chronic kidney disease), stage III Code(s): N18.3 - CHRONIC KIDNEY DISEASE, STAGE 3 (MODERATE) Status: Chronic Comment: Watch renal function, avoid nephrotoxins and limit contrast media exposure (4) Chronic atrial fibrillation Code(s): I48.2 - CHRONIC ATRIAL FIBRILLATION Status: Chronic Comment: Rate variable, hold anticoagulation due to GI bleed (5) Chronic anticoagulation Code(s): Z79.01 - MANAGER HI (CURRENT) USE OF ANTICOAGULANTS Status: Chronic Comment: See above - Plan DVT proph w/SCDs Stable currently -: Consult GI service for endoscopy -: Hold all NSAIDs and anticoagulation -: Start Protonix 40mg daily -: AM lab: BMP, CBC * Change Lasix 40mg po daily
[2017-05-22] MEDS ORDERED: PROVENTIL INHALER 6.7 G (200 INHALATIONS) INH PRN (13:53)
[2017-05-22] MEDS: HumaLOG 300 UNITS/3 ML VIAL SC PRN ×2 (16:31→21:33)
--- NOTE | 2017-05-22 17:06 | CON ---
DATE OF CONSULTATION: 05/22/2017 CHIEF COMPLAINT: Shortness of breath, weakness, and anemia. HISTORY OF PRESENT ILLNESS: Mr. Sinclair is an 81-year-old man who presented to the emergency room yes terday with progressive shortness of breath and weakness on exertion. He reports having one black st ool per day over the last 2 or 3 weeks. This morning, he had a hard brown stool. He has been on Nadia vix and Jose due to history of atrial fibrillation and stroke and CHF. He has had no nausea or vomi ting. No abdominal pain. His weight has been stable. He was discharged from the hospital back in [facility] at which point his hemoglobin was 12.7. His hemoglobin has dropped down to 8.8 on presentati on this hospitalization. PAST MEDICAL HISTORY: Prior stroke, diabetes mellitus on insulin, hypertension, atrial fibrillation, skin cancer resected, and gastroesophageal reflux disease. He reports last colonoscopy was in [place] 10 years ago and was negative. His CHF, he had echocardiogram back in 02/2017 which showed modera te mitral regurgitation and moderate aortic regurgitation with moderate to severe tricuspid regurgita tion and an EF of 45%-50%. PAST SURGICAL HISTORY: Pacemaker placement, eye surgery, cardiac catheterization, and foot surgery. SOCIAL HISTORY: He is a former smoker, history of drinking alcohol once a week. No drugs. FAMILY HISTORY: Negative for GI malignancy. ALLERGIES: No known drug allergies. CURRENT MEDICATIONS: Atorvastatin, carvedilol, cefdinir, furosemide, gabapentin, insulin, lisinopril , methylprednisolone, and pantoprazole. REVIEW OF SYSTEMS: Negative x10 systems reviewed except as stated in the history of present illness. PHYSICAL EXAMINATION: VITAL SIGNS: Temperature 98.8, pulse 60, and blood pressure 143/65. GENERAL: He is in no acute distress, alert and oriented x3. HEENT: Eyes have no scleral icterus. Oropharynx is clear, without lesions. NECK: No cervical or supraclavicular lymphadenopathy. LUNGS: Clear to auscultation bilaterally. HEART: Regular rate and rhythm. ABDOMEN: Soft, nontender, nondistended. Bowel sounds are present. EXTREMITIES: 2+ to 1+ pitting lower extremity edema. LABORATORY DATA: White blood cell count 9.7, hemoglobin 8.6, MCV 86.7, platelets 187, creatinine 1.1 0, and hemoglobin A1c from January was 7.2. IMPRESSION: Acute anemia associated with black stools. He is Hemoccult positive. He has been on Pl avix and Eliquis. He does have signs of overt bleeding today. He reports passing two hard brown sto ols this morning. In light of the reported black stools daily over the last 2 or 3 weeks, we will st art with evaluation of the upper gastrointestinal tract first. He does not appear to have been on a proton pump inhibitor chronically. RECOMMENDATIONS: 1. Pantoprazole. 2. Esophagogastroduodenoscopy tomorrow.
[2017-05-22] MEDS ORDERED: INSULIN GLARGINE HUM REC ANLOG 46 UNIT SQ SCH (21:00)
[2017-05-22] MEDS: Atorvastatin Calcium 20 MG TAB PO SCH (21:31)
[2017-05-22] MEDS: PRE FILLED SC SCH (21:33)
[2017-05-22] MEDS: INSULIN DETEMIR SC SCH (21:33)
[2017-05-23 05:33] LABS: Anion Gap 15 mmol/L (10-20); BUN (Urea Nitrogen) 28 mg/dL (8.4-25.7); Calc. Creatinine Clearance 76 mL/min (70-130); Calcium 9.5 mg/dL (7.8-10.44); Carbon Dioxide 25 mmol/L (23-31); Chloride 102 mmol/L (98-107); Estimated GFR-MDRD 53; Glucose 378 mg/dL (83-110); Potassium 4.5 mmol/L (3.5-5.1); Sodium 137 mmol/L (136-145)
[2017-05-23] MEDS: HumaLOG 300 UNITS/3 ML VIAL SC PRN ×2 (05:56→17:45)
[2017-05-23 06:49] LABS: Band 14 % (5-11); Lymphocytes 11 % (21-51); MDiff Complete? YES; Mean Corpuscular HGB CONC 30.5 g/dL (32.0-36.0); Mean Corpuscular Hemoglobin 26.4 pg (27.0-31.0); Mean Corpuscular Volume 86.5 fl (80.0-94.0); Mean Platelet Volume 9.7 fL (7.4-10.4); Monocytes 2 % (0-10); Neutrophil 73 % (42-75); Platelet Count 219 thou/uL (130-400); RBC Distribution Width 15.7 % (11.5-14.5); Red Blood Cell (RBC) Count 3.41 mill/uL (4.70-6.10); White Blood Cell (WBC) Count 12.7 thou/uL (4.8-10.8)
[2017-05-23] MEDS: Carvedilol 6.25 MG TAB PO SCH ×2 (09:19→21:25)
[2017-05-23] MEDS: Gabapentin 300 MG CAP PO SCH ×3 (09:20→21:26)
[2017-05-23] MEDS: Famotidine/PF 20 mg/2ml Vial SLOW IVP SCH (09:20)
[2017-05-23] MEDS: Lisinopril 5 MG TAB PO SCH (09:20)
[2017-05-23] MEDS: guaiFENesin ER 600 MG TAB PO SCH ×2 (09:20→21:25)
[2017-05-23] MEDS: Cefdinir 300 MG CAP PO SCH ×2 (09:20→21:25)
[2017-05-23] MEDS: Furosemide 40 MG TAB PO SCH (09:20)
[2017-05-23] MEDS: PRE FILLED SC SCH ×2 (11:12→21:26)
[2017-05-23] MEDS: INSULIN DETEMIR SC SCH ×2 (11:12→21:26)
[2017-05-23] MEDS ORDERED: Morphine Sulfate 2 MG/ML SYRINGE SLOW IVP PRN (13:36)
[2017-05-23] MEDS ORDERED: Ondansetron HCl/PF 4 MG/2 ML Vial IVP PRN (13:36)
[2017-05-23] MEDS ORDERED: Promethazine HCl 25 MG/ML VIAL SLOW IVP PRN (13:36)
--- NOTE | 2017-05-23 14:40 | OP ---
DATE OF PROCEDURE: 05/23/2017 PROCEDURE: Esophagogastroduodenoscopy with biopsy. INDICATION FOR PROCEDURE: Anemia, melena. DESCRIPTION OF PROCEDURE: After the risks and benefits of the procedure were explained to the patient including risks of bleeding, infection, perforation, reaction to anesthesia and/or pain, informed consent was obtained. The patient was then taken to the endoscopy suite and deep sedation was administered via propofol and anesthesia support. The standard gastroscope was then advanced into the mouth with intubation of the esophagus, stomach, and proximal small intestine and the findings as listed below. The patient tolerated the procedure well with no perioperative complications. FINDINGS: Duodenum: Normal-appearing mucosa was seen in the duodenal bulb and second portion of the duodenum. There was no evidence of erosions, ulcerations , or mass lesions. There was also no evidence of active/recent bleeding. Stomach: Normal-appearing mucosa was seen in the cardia, fundus, body, antrum, and incisura. There was no evidence of erosions, ulcerations, mass lesions, or active/recent bleeding. Normal findings on gastric retroflexion. Esophagus: Normal-appearing mucosa was seen in the proximal and mid esophagus. A polypoid mass was seen in the distal esophagus along the luminal wall at a 2 o'clock position, located between 36-40 cm. It did not display any evidence of active/recent bleeding. Multiple biopsies were taken from this polypoid mass for evaluation of possible malignancy. Associated with this mass was an additional enlarged esophageal fold along the 9 o'clock portion of the esophagus. Biopsies were also taken of this enlarged fold as well concerning for malignancy. In addition to the above, salmon-colored mucosa was seen extending proximally from the GE junction to approximately 36 cm past the incisors, concerning for the presence of Monk's esophagus. Two small erosions, measuring less than 1 cm in size, were seen at the GE junction, again without any evidence of active/recent bleeding. The diaphragmatic pinch was well seen at 42 cm while the GE junction was seen at 40 cm denoting a 2 cm hiatal hernia. IMPRESSION: 1. A linear polypoid mass, measuring approximately 4 cm, seen in the distal esophagus, concerning for malignancy, status post biopsies. 2. Galt-colored mucosa seen in the distal esophagus extending in a circumferential manner from the GE junction to 36 cm past the incisors, consistent with Monk's esophagus 3. A known 2 cm hiatal hernia. 4. LA grade A reflux mediated erosive esophagitis RECOMMENDATIONS: 1. Follow up with primary inpatient team. 2. We will follow up on biopsy results for possible malignancy. 3. We would consider consultation of Medical Oncology and Surgical Oncology services if the above biopsies are positive for malignancy. 4. We would continue patient on pantoprazole 40 mg daily. 5. We would continue to trend H and H and transfuse as necessary to maintain an H and H of 7/21. 6. We would continue to hold any anticoagulation for the next 24 hours given the biopsies taken today. MTDD
[2017-05-23] MEDS ORDERED: Lidocaine 1% PF 5 ML VIAL ONE (15:01)
--- NOTE | 2017-05-23 18:14 | PDOC.PN ---
- Subjective Encounter Start Date: 05/23/17 Encounter Start Time: 17:50 Subjective: f/u for acute blood loss anemia in context of Eliquis and Plavix. EGD shows -: Monk's esophagitis and polypoid mass noted with path pending. - Objective Resuscitation Status: Resuscitation Status FULL:Full Resuscitation MAR Reviewed: Yes Vital Signs & Weight: Vital Signs (12 hours) Temp Pulse Resp BP BP BP Pulse Ox 05/23/17 16:25 97.3 F L 65 16 130/60 94 L 05/23/17 14:50 97.6 F 66 16 151/65 H 93 L 05/23/17 11:16 97.6 F 66 16 146/65 H 92 L 05/23/17 10:52 80 14 05/23/17 09:20 67 05/23/17 09:19 131/65 05/23/17 08:50 97.9 F 67 16 93 L 05/23/17 08:48 97.9 F 67 16 131/65 93 L 05/23/17 07:19 80 16 Weight Weight 263 lb 11.2 oz I&O: 05/22/17 05/23/17 05/24/17 06:59 06:59 06:59 Intake Total 240 1440 1064 Output Total 3450 750 Balance 240 -2009 314 Result Diagrams: 05/23/17 04:37 05/23/17 04:37 Additional Labs: Accuchecks 05/23/17 05/23/17 05/23/17 12:38 11:42 05:46 POC Glucose 253 H 260 H 363 H 05/22/17 21:02 POC Glucose 426 H Microbiology 05/21/17 16:00 Stool - Pending Stool Occult Blood (INES) - Final 05/21/17 13:55 Stool Stool Occult Blood (INES) - Final Laboratory Tests 05/21/17 05/22/17 12:29 04:07 Hgb 8.8 L 8.6 L EKG Reviewed by me: Yes (Tele - A-fib in 90's) Phys Exam - Physical Examination Constitutional: NAD HEENT: PERRLA, oral pharynx no lesions Neck: no JVD, supple Respiratory: no wheezing, clear to auscultation bilateral Cardiovascular: irregular Gastrointestinal: soft, non-tender, no distention, positive bowel sounds Musculoskeletal: no edema, pulses present Neurological: normal sensation, moves all 4 limbs Psychiatric: A&O x 3 Skin: normal turgor, cap refill <2 seconds Dx/Plan (1) GI bleed Code(s): K92.2 - GASTROINTESTINAL HEMORRHAGE, UNSPECIFIED Status: Acute Comment: Likely due to Plavix and Eliquis, PPI, Monk's esophagitis noted on EGD, biopsy results pending (2) Anemia due to blood loss, acute Code(s): D62 - ACUTE POSTHEMORRHAGIC ANEMIA Status: Acute Comment: symptomatic anemia secondary to acute/subacute loss, hold all NSAIDs and anticoagulation, Protonix 40mg daily, GI consult (3) CKD (chronic kidney disease), stage III Code(s): N18.3 - CHRONIC KIDNEY DISEASE, STAGE 3 (MODERATE) Status: Chronic Comment: Watch renal function, avoid nephrotoxins and limit contrast media exposure (4) Chronic atrial fibrillation Code(s): I48.2 - CHRONIC ATRIAL FIBRILLATION Status: Chronic Comment: Rate variable, hold anticoagulation due to GI bleed (5) Chronic anticoagulation Code(s): Z79.01 - LICENSED APPRAISER (CURRENT) USE OF ANTICOAGULANTS Status: Chronic Comment: See above - Plan plan discussed w/ family, continue antibiotics, PT/OT, social group worker, out of bed/ambulate, DVT proph w/SCDs Stable overall -: Continue Pepcid 20mg BID -: Await pathology from esophageal bx -: Hold anticoagulation, NSAIDs -: AM lab: H/H * D/C Solumedrol * Start Prednisone 20mg daily * Likely home in am
[2017-05-23] MEDS: Atorvastatin Calcium 20 MG TAB PO SCH (21:26)
[2017-05-23] MEDS: Famotidine 20 MG TAB PO SCH (21:26)
[2017-05-24 05:38] LABS: Hemoglobin 9.3 g/dL (14.0-18.0); Platelet Count 238 thou/uL (130-400)
[2017-05-24] MEDS: HumaLOG 300 UNITS/3 ML VIAL SC PRN ×3 (05:40→20:36)
[2017-05-24] MEDS: Gabapentin 300 MG CAP PO SCH ×3 (08:06→20:35)
[2017-05-24] MEDS: predniSONE 20 MG TAB PO SCH (08:06)
[2017-05-24] MEDS: Cefdinir 300 MG CAP PO SCH (08:06)
[2017-05-24] MEDS: Furosemide 40 MG TAB PO SCH (08:06)
[2017-05-24] MEDS: guaiFENesin ER 600 MG TAB PO SCH ×2 (08:06→20:35)
[2017-05-24] MEDS: Famotidine 20 MG TAB PO SCH ×2 (08:06→20:35)
[2017-05-24] MEDS: Carvedilol 6.25 MG TAB PO SCH ×2 (08:07→20:40)
[2017-05-24] MEDS: Lisinopril 5 MG TAB PO SCH (08:07)
[2017-05-24] MEDS: INSULIN DETEMIR SC SCH ×2 (12:59→20:35)
[2017-05-24] MEDS: PRE FILLED SC SCH ×2 (12:59→20:35)
[2017-05-24] MEDS ORDERED: ISOVUE-370 76%-LOCM 1 ML ONE (13:58)
--- NOTE | 2017-05-24 14:01 | PDOC.PN ---
- Subjective Encounter Start Date: 05/24/17 Encounter Start Time: 13:35 Subjective: f/u for GI bleed with EGD showing Monk's changes and distal esophageal -: neoplasm dx invasive adenocarcinoma. Hemoglobin stable and pt denies any -: melena, N/V or abd pain. - Objective Resuscitation Status: Resuscitation Status FULL:Full Resuscitation MAR Reviewed: Yes Vital Signs & Weight: Vital Signs (12 hours) Temp Pulse Resp BP BP Pulse Ox 05/24/17 12:00 97.3 F L 69 18 127/77 92 L 05/24/17 10:48 67 16 96 05/24/17 08:07 64 166/78 H 05/24/17 08:00 97.5 F L 72 16 97 05/24/17 06:45 64 16 97 05/24/17 06:24 97.5 F L 64 20 129/74 95 Weight Weight 263 lb 0.014 oz I&O: 05/23/17 05/24/17 05/25/17 06:59 06:59 06:59 Intake Total 1440 1064 Output Total 3450 750 Balance -2009 314 Result Diagrams: 05/24/17 04:56 05/23/17 04:37 Additional Labs: Accuchecks 05/24/17 05/23/17 05/23/17 05:23 20:01 17:29 POC Glucose 227 H 282 H 331 H Phys Exam - Physical Examination Constitutional: NAD HEENT: PERRLA, oral pharynx no lesions Neck: no JVD, supple Respiratory: no wheezing, clear to auscultation bilateral Cardiovascular: RRR Gastrointestinal: soft, non-tender, no distention, positive bowel sounds Musculoskeletal: no edema, pulses present Neurological: normal sensation, moves all 4 limbs Psychiatric: A&O x 3 Skin: normal turgor, cap refill <2 seconds Dx/Plan (1) GI bleed Code(s): K92.2 - GASTROINTESTINAL HEMORRHAGE, UNSPECIFIED Status: Acute Comment: Likely due to Plavix and Eliquis, PPI, Monk's esophagitis noted on EGD, biopsy results showing invasive adenocarcinoma (2) Anemia due to blood loss, acute Code(s): D62 - ACUTE POSTHEMORRHAGIC ANEMIA Status: Acute Comment: symptomatic anemia secondary to acute/subacute loss, hold all NSAIDs and anticoagulation, Protonix 40mg daily, GI consult (3) Esophageal adenocarcinoma Code(s): C15.9 - MALIGNANT NEOPLASM OF ESOPHAGUS, UNSPECIFIED Status: Acute Comment: Consult Gen Surgery and Oncology service for options (4) CKD (chronic kidney disease), stage III Code(s): N18.3 - CHRONIC KIDNEY DISEASE, STAGE 3 (MODERATE) Status: Chronic Comment: Watch renal function, avoid nephrotoxins and limit contrast media exposure (5) Chronic atrial fibrillation Code(s): I48.2 - CHRONIC ATRIAL FIBRILLATION Status: Chronic Comment: Rate variable, hold anticoagulation due to GI bleed (6) Chronic anticoagulation Code(s): Z79.01 - ASSISTED (CURRENT) USE OF ANTICOAGULANTS Status: Chronic Comment: See above - Plan plan discussed w/ family, out of bed/ambulate, DVT proph w/SCDs Stable overall -: Continue Protonix 40mg daily -: Consult Gen Surgery and Medical Oncology for evaluation and options -: Start regular diet -: AM lab: H/H * D/C Omn[employer]
--- NOTE | 2017-05-24 18:30 | CON ---
DATE OF CONSULTATION: 05/24/2017 REASON FOR CONSULTATION: Esophageal adenocarcinoma. HISTORY OF PRESENT ILLNESS: Mr. Sinclair is a very pleasant 81-year-old male who was in his usual state of health until yesterday when he became extremely short of breath walking to the mailbox and back. He admits that he has had dark melena stool for the last 2 weeks. He called his primary care physician who recommended he come to the emergency room. In the emergency room, his hemoglobin was 8.8. He had a guaiac positive stool. He also had an elevated troponin and BNP. He was treated for acute on chronic congestive heart failure. GI was consulted for the positive guaiac, an EGD was performed which revealed a linear polypoid mass measuring approximately 4 cm in the distal esophagus. He had Monk's esophagus, hiatal hernia and erosive esophagitis. Biopsies of the distal mass returned invasive moderately differentiated adenocarcinoma. Patient denies any difficulty swallowing, no heartburn, no weight loss. He does have a significant history for squamous cell skin cancer and has underwent multiple Mohs procedures since 2012. He had an abnormal skin lesion removed this past March. PAST MEDICAL HISTORY: 1. CVA in 2014. 2. Diabetes mellitus. 3. Hypertension 4. Paroxysmal atrial fibrillation. 5. Renal artery aneurysm. 6. Gastroesophageal reflux. 7. Multiple skin cancers of face and arms. 8. Right eye tremor. PAST SURGICAL HISTORY: 1. Pacemaker placement in 2007. 2. Left foot surgery. 3. Right eye surgery. 4. Cardiac stent placement. 5. Mohs procedures. HOME MEDICATIONS: 1. Proventil p.r.n. 2. Eliquis 5 mg b.i.d. 3. Lipitor 20 mg daily. 4. Carvedilol 25 mg b.i.d. 5. Plavix 75 mg daily. 6. Lasix 40 mg daily. 7. Insulin b.i.d. 8. Ranitidine 150 mg b.i.d. FAMILY HISTORY: Negative for clotting or bleeding disorder. His brother had from cirrhotic liver. SOCIAL HISTORY: , has grown children, lives in [place]. No alcohol, tobacco or illicit drug use. He does have a [id number]-[id number] history, but he quit many years ago. REVIEW OF SYSTEMS: Ten-point review of systems is negative except per stated in HPI. PHYSICAL EXAMINATION: VITAL SIGNS: Temperature is 97.3, pulse is 72, respiratory rate 16, BP is 127/ 77. He is 97% on room air. GENERAL: This is a well-developed, well-nourished male in no acute distress. HEENT: Normocephalic, atraumatic. Pupils are equal and reactive to light. He does have a right eye irregularity. NECK: Supple. CARDIOVASCULAR: Regular rate and rhythm. LUNGS: Clear. ABDOMEN: Soft, nontender. There is no organomegaly. Bowel sounds are positive. EXTREMITIES: No clubbing, cyanosis or edema. SKIN: No rash. Multiple scarring on his arms and face. HEMATOLOGIC: No petechia or purpura. NEUROLOGIC: Nonfocal. PSYCHIATRIC: Patient is alert and oriented and appropriate. PERTINENT LABORATORY AND X-RAYS: Current WBCs are 12.7, hemoglobin 9.3, hematocrit 29.6, platelet count is 238,000. Sodium is 137, potassium 4.5, chloride 102, CO2 is 25, BUN is 28, creatinine is 1.31, calcium is 9.5, total bilirubin is 0.6, AST is 13, ALT is 10, alkaline phosphatase is 65. Creatine kinase is 133, CK-MB is 25. Troponin is 0.043. BNP is 483. Serum total protein 6.6, albumin 3.6, globulin 3. ASSESSMENT: 1. 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 2. Diastolic heart failure with ejection fraction of 45-50%. 3. Chronic atrial fibrillation, on Eliquis. 4. Monk's esophagitis. DISCUSSION: Patient will need continued staging for his esophageal cancer. We will order a CT scan of his chest, abdomen and pelvis to rule out metastatic disease. He will need testing on the tissue for HER2 and PD-L1 if metastatic. He may also need a EUS. Based on these results, further treatment options will be recommended. He could be a candidate for surgery if there is no metastatic disease. Patient will likely go home in the next 24 hours and he can follow up in the clinic to assist with further workup to determine treatment. Thank you for the consult. FRANCHESCA
--- NOTE | 2017-05-24 19:13 | PRG ---
DATE OF SERVICE: 05/24/2017 SUBJECTIVE: Mr. Sinclair has no acute complaints. OBJECTIVE: VITAL SIGNS: Temperature 97.3, pulse 72, blood pressure 127/77. GENERAL: He is in no acute distress. He is alert and oriented x3. LUNGS: Have bilateral expiratory wheezes. HEART: Regular rate and rhythm. ABDOMEN: Soft, nontender, nondistended, bowel sounds are present. EXTREMITIES: 1+ pitting lower extremity edema. LABORATORY: Hemoglobin is stable at 9.3. IMPRESSION: 1. Upper gastrointestinal bleed without ongoing overt bleeding now. 2. Adenocarcinoma of the distal esophagus arising from a segment of Monk's esophagus. CT scan of the chest, abdomen, and pelvis was done this afternoon which does not show evidence of metastatic di sease or enlarged lymph nodes around the area. RECOMMENDATIONS: 1. We will recommend referral for endoscopic ultrasound to complete staging. Options for endoscopic mucosal resection versus surgical treatment will need to be evaluated. If these are not viable opti ons, then the patient can consider undergoing chemotherapy plus/minus radiation here locally. Referr al to [facility] would be appropriate to complete the EUS and evaluation for surgical options firs t. 2. Proton pump inhibitor daily. 3. He could potentially discharge home tomorrow pending the referral status. We will discuss with h er local oncologist as well.
--- NOTE | 2017-05-24 20:11 | CT ---
CT CHEST WITH IV CONTRAST CT ABDOMEN AND PELVIS WITH IV CONTRAST 05/24/17 PROVIDED CLINICAL HISTORY: Esophageal cancer. FINDINGS: The heart, pericardium and great vessels demonstrate an unremarkable CT appearance with the exception of vascular calcification including coronary calcium. There is no evidence for thoracic lymph node e nlargement. The lungs are free of significant opacity. Small bilateral pleural effusions are seen. The solid abdominal organs demonstrate an unremarkable CT appearance. Vascular calcification in the r ight renal pelvis is similar to the 05/30/13 study. Vascular calcifications involve the abdominal aort a and its branches. There is no bowel dilatation, inflammatory fat stranding free fluid or lymph node enlargement apparen t. The osseous structures demonstrate no concerning osteoblastic or osteolytic lesions. IMPRESSION: 1. No evidence for metastatic disease. 2. Small bilateral pleural effusions. POS: [facility]
[2017-05-24] MEDS: Atorvastatin Calcium 20 MG TAB PO SCH (20:35)
[2017-05-25 05:46] LABS: Hemoglobin 9.9 g/dL (14.0-18.0); Platelet Count 224 thou/uL (130-400)
[2017-05-25] MEDS: HumaLOG 300 UNITS/3 ML VIAL SC PRN ×2 (06:14→12:05)
[2017-05-25] MEDS: Lisinopril 5 MG TAB PO SCH (08:05)
[2017-05-25] MEDS: Famotidine 20 MG TAB PO SCH (08:05)
[2017-05-25] MEDS: Gabapentin 300 MG CAP PO SCH ×2 (08:06→14:09)
[2017-05-25] MEDS: Carvedilol 6.25 MG TAB PO SCH (08:06)
[2017-05-25] MEDS: predniSONE 20 MG TAB PO SCH (08:06)
[2017-05-25] MEDS: guaiFENesin ER 600 MG TAB PO SCH (08:06)
[2017-05-25] MEDS: Furosemide 40 MG TAB PO SCH (08:06)
[2017-05-25] MEDS: PRE FILLED SC SCH (08:52)
[2017-05-25] MEDS: INSULIN DETEMIR SC SCH (08:52)
[2017-05-25 12:57] VITALS: BP 115/71; TEMP 97.6
--- NOTE | 2017-05-25 17:36 | DIS ---
DATE OF ADMISSION: 05/21/2017 DATE OF DISCHARGE: 05/25/2017 DISCHARGE DIAGNOSES: 1. Status post upper gastrointestinal bleed secondary to Monk esophagitis and esophageal adenocar cinoma. 2. Acute blood loss anemia secondarily to #1, stable. 3. Invasive esophageal adenocarcinoma, moderately differentiated. 4. Chronic kidney disease, stage 3. 5. History of chronic atrial fibrillation with chronic anticoagulation with Eliquis. 6. Diabetes mellitus type 2, insulin requiring. 7. Hypertension. CONSULTATIONS: Dr. Munroe and Dr. Chung with GI service. Cassidy Julien with Medical Oncology Servic e. PERTINENT LABORATORY AND X-RAY FINDINGS: Creatinine ranged between 1.10-1.31 with estimated GFR rang ing between 53-64. BNP 483. Serum iron level 13, TIBC 325, ferritin 39.01. CBC showed a hemoglobin ranging between 8.8-9.9, MCV 87. Stool Hemoccult positive x2, 05/21/2017. Portable chest x-ray tono ed 05/21/2017 showed no acute cardiopulmonary process. EGD dated 05/23/2017 showed polypoid mass 4 c m of distal esophagus concerning for malignancy. Monk esophagitis. A 2 cm hiatal hernia. LA Gra de A reflux mediated erosive esophagitis. CT of the chest, abdomen, and pelvis dated 05/24/2017 show ed no evidence for metastatic process. Esophageal biopsy dated 05/23/2017 showed invasive moderately differentiated adenocarcinoma. HOSPITAL COURSE: Patient was initially presented with increased shortness of breath, generalized wea kness and melena. The patient underwent general evaluation after concern for acute upper gastrointes tinal bleed and an acute anemia. The patient underwent serial H and H monitoring and was evaluated b y the GI service. Due to patient's significant drop in hemoglobin from 02/2017-04/2017, the patient underwent EGD evaluation showing erosive esophagitis and Monk esophagus. The patient was also not ed with a distal esophageal mass approximately 4 cm with biopsy results showing an invasive moderatel y differentiated adenocarcinoma. The patient did not require packed red blood cell transfusion durin g the hospital course with stabilization of hemoglobin values after discontinuation of Eliquis and Pl avix. The patient on chronic anticoagulation due to history of chronic atrial fibrillation; however, current recommendations are to hold anticoagulation. The patient was evaluated by the medical oncol ogy service due to the newly diagnosed adenocarcinoma of the distal esophagus with recommendations fo r outpatient followup and further staging. The patient may also need an endoscopic ultrasound for po tential local resection given no evidence for metastatic process. Overall, the patient remained clin ically stable throughout the hospital course with stabilization of hemoglobin values by the time of d ischarge. The patient is tolerating regular oral intake, ambulatory without assistance or difficulty and ready for discharge on 05/25/2017. DISCHARGE MEDICATIONS: 1. Proventil HFA 1 puff inhaled q.i.d. p.r.n. 2. Eliquis 5 mg p.o. b.i.d., hold until 05/30/2017. 3. Lipitor 20 mg p.o. at bedtime. 4. Carvedilol 12.5 mg p.o. b.i.d. 5. Plavix 75 mg p.o. daily, hold until 05/30/2017. 6. Lasix 40 mg 1 tab p.o. daily. 7. Glargine insulin 46 units subcutaneously b.i.d. 8. Nitrostat 0.4 mg sublingually every 5 minutes p.r.n. chest pain. 9. Protonix 40 mg 1 tab p.o. daily. FOLLOWUP: Patient will follow up with Dr. Cory Ayala within 7 days of discharge. Patient wi ll follow up with the cancer clinic with Dr. Antoine on 05/30/2017 at 8:45 a.m. CONDITION ON DISCHARGE: Stable. ACTIVITY: Ad chong. DIET: Heart healthy and ADA. CODE STATUS: FULL. DISPOSITION: Home, 05/25/2017. Total time preparing and coordinating discharge was 34 minutes.
--- NOTE | 2017-06-09 17:34 | EKG ---
Test Reason : Blood Pressure : / mmHG Vent. Rate : 065 BPM Atrial Rate : 040 BPM P-R Int : 000 ms QRS Dur : 186 ms QT Int : 474 ms P-R-T Axes : 000 -53 107 degrees QTc Int : 492 ms Ventricular-paced rhythm with occasional supraventricular complexes and with occasional Premature josh tricular complexes Abnormal ECG Confirmed by DI ROSARIO ([id number]), slot editor STEVEN POTTER ([id number]) on 06/09/2017 5:33:45 PM Referred By: VIVIANA Confirmed By:DI ROSARIO
== END 2017-05-25 14:43 | disposition home or self-care (01) | DRG 375 ==
LOC: ERS 11:45 → ERHOLD 14:20 → 2NO 17:41 → T4-A 05-23 18:36
PROVIDERS: ADMIT Internal Medicine; ATTEND Internal Medicine
PROC: 0DB38ZX Excision of Lower Esophagus, Via Natural or Artificial Opening Endoscopic, Diagnostic (ICD-10-PCS; principal; 2017-05-23)
DX: C15.5 Malignant neoplasm of lower third of esophagus (principal); K92.0 Hematemesis; E11.42 Type 2 diabetes mellitus with diabetic polyneuropathy; E11.22 Type 2 diabetes mellitus with diabetic chronic kidney disease; D62 Acute posthemorrhagic anemia; N18.3 Chronic kidney disease, stage 3 (moderate); I24.8 Other forms of acute ischemic heart disease; I13.0 Hypertensive heart and chronic kidney disease with heart failure and stage 1 through stage 4 chronic kidney disease, or unspecified chronic kidney disease; K92.1 Melena; I50.32 Chronic diastolic (congestive) heart failure; E66.01 Morbid (severe) obesity due to excess calories; I08.3 Combined rheumatic disorders of mitral, aortic and tricuspid valves; D64.9 Anemia, unspecified; I48.2 Chronic atrial fibrillation; E78.5 Hyperlipidemia, unspecified; Z79.01 Long term (current) use of anticoagulants; Z79.82 Long term (current) use of aspirin; I25.10 Atherosclerotic heart disease of native coronary artery without angina pectoris; Z95.5 Presence of coronary angioplasty implant and graft; Z85.828 Personal history of other malignant neoplasm of skin; Z86.73 Personal history of transient ischemic attack (TIA), and cerebral infarction without residual deficits; Z95.0 Presence of cardiac pacemaker; Z87.891 Personal history of nicotine dependence; Z68.38 Body mass index [BMI] 38.0-38.9, adult; K22.70 Barrett's esophagus without dysplasia; K44.9 Diaphragmatic hernia without obstruction or gangrene; K21.9 Gastro-esophageal reflux disease without esophagitis
CPT/HCPCS: 36415; 36416; 71045; 71260; 74177; 80048; 80053; 82274; 82550; 82553; 82728; 83540; 83550; 83735; 83880; 84484; 84550; 85007; 85014; 85018; 85025; 85027; 85049; 88305; 88312; 88313; 93005; 93798; 94640; A4216; J1815; J1940; J2001; J2920; J7506; J7620; S0028

== ENCOUNTER 2017-06-12 13:56 | Outpatient (CLI) | payer MEDICARE, BC ==
--- NOTE | 2017-06-12 16:30 | PET ---
EXAM: PET SCAN WITH CT ATTENUATION CORRECTION 06/12/17 HISTORY: Initial staging for esophageal cancer. History of basal cell skin cancer. COMPARISON: None. TECHNIQUE: PET scan with CT attenuation correction is performed from the base of the brain to the proximal thigh s following the intravenous administration of 11.03 millicuries of [id number]. FINDINGS: HEAD AND NECK: There is increased FDG avidity involving a right periparotid/intraparotid mass with a maximum SUV of 10.4. Mass measures 2.1 cm. CHEST: Increased FDG localization involving the distal thoracic esophagus, compatible with the patient's his tory of esophageal cancer. No additional areas of abnormal FDG localization in the chest. ABDOMEN: There is increased FDG avidity associated with a soft tissue mass emanating from the serosal margin of the lesser curvature of the stomach. Maximum SUV is approximately 10. This exophytic mass measures 2.5 cm. No additional areas of abnormal FDG localization in the abdomen or pelvis. OSSEOUS STRUCTURES: No abnormal FDG localization. IMPRESSION: 1. FDG avidity involving the right parotid region as defined above. 2. FDG avidity likely exophytic and along the serosal margin of the lesser curvature of the stom ach. 3. FDG avidity involving the distal thoracic esophagus, compatible with patient's history of sae plasm. POS: DOUG
== END 2017-06-12 13:57 | disposition home or self-care (01) ==
LOC: PET 13:56
PROVIDERS: ATTEND Internal Medicine Hematology & Oncology
DX: C15.9 Malignant neoplasm of esophagus, unspecified (principal); R93.8 Abnormal findings on diagnostic imaging of other specified body structures; R93.3 Abnormal findings on diagnostic imaging of other parts of digestive tract; R93.5 Abnormal findings on diagnostic imaging of other abdominal regions, including retroperitoneum
CPT/HCPCS: 78815; A9552

== ENCOUNTER 2017-07-11 11:17 | Day surgery (SDC) | payer MEDICARE, BC ==
[2017-07-11] MEDS ORDERED: Acetaminophen 500 MG TAB PO SCH (11:45)
[2017-07-11] MEDS ORDERED: diphenhydrAMINE 25 MG CAP PO SCH (11:45)
[2017-07-11] MEDS ORDERED: Furosemide 40 MG TAB PO SCH (14:30)
[2017-07-11 19:01] VITALS: BP 178/78; TEMP 97.5
[2017-07-11 19:36] LABS: #Lymphocytes 0.6 thou/uL (1.20-3.40); #Monocytes 0.2 thou/uL (0.11-0.59); %Basophils 0.1 % (0.0-1.0); %Eosinophils 0.5 % (0.0-10.0); %Lymphocytes 12.1 % (21.0-51.0); %Monocytes 3.4 % (0.0-10.0); %Neutrophils 83.8 % (42.0-75.0); Hemoglobin 9.3 g/dL (14.0-18.0); Mean Corpuscular HGB CONC 31.5 g/dL (32.0-36.0); Mean Corpuscular Hemoglobin 24.3 pg (27.0-31.0); Mean Corpuscular Volume 77.3 fl (80.0-94.0); Mean Platelet Volume 11.3 fL (7.4-10.4); Platelet Count 132 thou/uL (130-400); RBC Distribution Width 19.1 % (11.5-14.5); Red Blood Cell (RBC) Count 3.84 mill/uL (4.70-6.10); White Blood Cell (WBC) Count 4.8 thou/uL (4.8-10.8)
== END 2017-07-11 19:30 | disposition home or self-care (01) ==
LOC: ONC/OP 11:17
PROVIDERS: ATTEND Internal Medicine Hematology & Oncology
PROC: 30233N1 Transfusion of Nonautologous Red Blood Cells into Peripheral Vein, Percutaneous Approach (ICD-10-PCS; principal; 2017-07-11)
DX: D64.9 Anemia, unspecified (principal); D69.6 Thrombocytopenia, unspecified; I11.0 Hypertensive heart disease with heart failure; I50.42 Chronic combined systolic (congestive) and diastolic (congestive) heart failure; I48.2 Chronic atrial fibrillation; E11.9 Type 2 diabetes mellitus without complications; E78.5 Hyperlipidemia, unspecified; K21.9 Gastro-esophageal reflux disease without esophagitis; I25.10 Atherosclerotic heart disease of native coronary artery without angina pectoris; Z79.4 Long term (current) use of insulin; Z79.01 Long term (current) use of anticoagulants; Z79.02 Long term (current) use of antithrombotics/antiplatelets; Z79.899 Other long term (current) drug therapy; Z95.5 Presence of coronary angioplasty implant and graft; Z98.890 Other specified postprocedural states; Z86.73 Personal history of transient ischemic attack (TIA), and cerebral infarction without residual deficits; Z87.891 Personal history of nicotine dependence
CPT/HCPCS: 36415; 36430; 77386; 77417; 85025; 86850; 86900; 86901; P9016

== ENCOUNTER 2017-09-13 08:10 | Outpatient (CLI) | payer MEDICARE, BC ==
--- NOTE | 2017-09-13 12:40 | PET ---
NUCLEAR MEDICINE PET SCAN WITH CT ATTENUATION CORRECTION: HISTORY: Basal cell cancer of the skin. Esophageal cancer. COMPARISON: 06/12/17. TECHNIQUE: PET scan with CT attenuation correction is performed from the skull vertex to the proximal thighs fol lowing the intravenous administration of 11.9 mCi [id number]. FINDINGS: HEAD AND NECK: Persistent FDG avidity involving the right parotid gland, worrisome for intraparotid/periparotid mass . Currently, the maximum SUV is 8.1. Previously the maximum SUV was 10.0. The mass has not changed in size and currently measures 2.3 cm (previously measuring 2.1 cm. CHEST: No abnormal FDG localization in the chest. ABDOMEN: Persistent FDG localization along the lesser curvature of the stomach with an associated stable mass. Maximum SUV is 5.6. Previously, the maximum SUV was 10.0. No additional areas of abnormal FDG loc alization in the abdomen or pelvis. OSSEOUS STRUCTURES: No abnormal FDG localization. IMPRESSION: 1. Persistent fluorodeoxyglucose localization of the right parotid mass. 2. Persistent fluorodeoxyglucose localization along the lesser curvature of the stomach. 3. Both areas of fluorodeoxyglucose have decreased when compared to the previous examination. POS: D[facility]
== END 2017-09-13 08:11 | disposition home or self-care (01) ==
LOC: PET 08:10
PROVIDERS: ATTEND Internal Medicine Hematology & Oncology
DX: C15.5 Malignant neoplasm of lower third of esophagus (principal); K11.8 Other diseases of salivary glands
CPT/HCPCS: 78815; A9552

== ENCOUNTER 2017-10-01 08:13 | Outpatient (CLI) | payer MEDICARE, BC ==
--- NOTE | 2017-10-01 09:59 | CT ---
CONTRAST ENHANCED CT SOFT TISSUE NECK DATED 10/01/17. TECHNIQUE: Axial images are obtained with coronal and sagittal reconstructions. HISTORY: The patient has had a previous history of esophageal cancer. FINDINGS: Images demonstrate an intracardiac pacing device. Atherosclerotic calcification of the aorta and car otid artery seen. There is extensive distal right CCA and proximal right ICA atherosclerotic calcified plaques. A mode rate distal left CCA and proximal left ICA calcified plaque is also seen. Findings suggesting approx imately 80% right and approximately 70% left ICA stenosis. There is a 2.2 x 2.2 x 2.9 cm heterogeneously enhancing mass in the deep lobe of the right parotid gl and. This appears to be medial to the right retromandibular vein and right facial nerve. The lesion has a heterogeneous pattern of enhancement with areas of marked increased enhancement. Surgical consultation is recommended. No other soft tissue neck masses or lesions seen. IMPRESSION: 1. Extensive bilateral carotid arterial disease approximately 80% on the right and 70% on the left. 2. Deep lobe right parotid heterogeneously enhancing mass. The lesion appears to have well circumsc ribed margin. Differential diagnosis includes benign mixed tumor, although adenoid cystic carcinoma, mucoepidermoid carcinoma, and even lesion such as lymphoma could not be excluded. POS: DOUG
[2017-10-01] MEDS ORDERED: Iopamidol 370 76% 100 ML VIAL ONE (14:50)
== END 2017-10-01 08:14 | disposition home or self-care (01) ==
LOC: CT 08:13
PROVIDERS: ATTEND Otolaryngology Otolaryngic Allergy
DX: R22.1 Localized swelling, mass and lump, neck (principal); I77.9 Disorder of arteries and arterioles, unspecified; K11.8 Other diseases of salivary glands
CPT/HCPCS: 70491; 82565

== ENCOUNTER 2017-10-15 10:33 | Day surgery (SDC) | payer MEDICARE, BC ==
[2017-10-12 14:09] VITALS: BMI 37.0
[2017-10-15] MEDS ORDERED: Lidocaine 1% PF 5 ML VIAL ONE (10:36)
[2017-10-15] MEDS ORDERED: PROPOFOL 200 MG/20 ML VIAL ONE (10:36)
--- NOTE | 2017-10-15 12:53 | OP ---
DATE OF PROCEDURE: 10/15/2017 PROCEDURE PERFORMED: Esophagogastroduodenoscopy with biopsy. PREOPERATIVE DIAGNOSIS: Esophageal cancer, status post chemotherapy and radiation PROCEDURE IN DETAIL: Informed consent was obtained from the patient. He was sedated with total intr avenous anesthesia. The bite block was placed and the endoscope was advanced easily to the second po rtion of the duodenum and retroflexion was performed in the stomach. The esophagus had a 3 cm segmen t consistent with Monk's or salmon-colored mucosa. There is no residual nodularity or tumor in th is area, at the GE junction or in distal esophagus. Biopsies were obtained at 41 cm and 39 cm. Thes e were distal esophageal biopsies. There was a 1 cm hiatal hernia present. There was a 1 cm polyp o n the antral side of the incisura. This was biopsied. There is mild erythematous gastritis in the a ntrum and erythematous duodenitis in the first portion of the duodenum. Biopsies were taken from the stomach, antrum and body to rule out H. pylori. The remainder of the gastric mucosa was normal. Th e stomach was fully insufflated and inspected carefully. There is no evidence of external compressio n or mucosal lesion to correlate with the abnormal area of uptake on PET scan in the body of the stom ach. There is no irregularity in the fundus or antrum either. The second portion of the duodenum wa s normal. The pylorus was normal. IMPRESSION: 1. Short segment of salmon-colored mucosa from 41-39 cm in the distal esophagus. There is some scar in this area consistent with the prior treatment for the esophageal cancer with chemotherapy and rad iation; however, there is no residual tumor visibly identifiable. Four quadrant biopsies were obtain ed at 41 cm and 39 cm. He appears to have responded well to treatment grossly. 2. A 1 cm hiatal hernia. 3. Erythematous gastritis and duodenitis. Biopsies were taken from the body and antrum to rule out Helicobacter pylori. 4. A 1 cm gastric polyp on the antral side of the incisura, biopsied. This is likely a fundic gland polyp or hyperplastic polyp and should not require further intervention. 5. There is no mass or mucosal abnormality or evidence of external compression to correlate with the gastric lesion noted by PET scan. RECOMMENDATIONS: 1. Await histopathology. 2. Follow up in GI clinic and with Dr. Antoine.
== END 2017-10-15 13:32 | disposition home or self-care (01) ==
LOC: SDC 10:33
PROVIDERS: ATTEND Internal Medicine Gastroenterology
PROC: 0DB58ZX Excision of Esophagus, Via Natural or Artificial Opening Endoscopic, Diagnostic (ICD-10-PCS; principal; 2017-10-15)
PROC: 0DB78ZX Excision of Stomach, Pylorus, Via Natural or Artificial Opening Endoscopic, Diagnostic (ICD-10-PCS; 2017-10-15)
PROC: 0DB68ZX Excision of Stomach, Via Natural or Artificial Opening Endoscopic, Diagnostic (ICD-10-PCS; 2017-10-15)
DX: K31.7 Polyp of stomach and duodenum (principal); K29.70 Gastritis, unspecified, without bleeding; K29.80 Duodenitis without bleeding; K44.9 Diaphragmatic hernia without obstruction or gangrene; E11.9 Type 2 diabetes mellitus without complications; Z85.01 Personal history of malignant neoplasm of esophagus; I48.91 Unspecified atrial fibrillation; Z79.01 Long term (current) use of anticoagulants; Z79.4 Long term (current) use of insulin; Z79.899 Other long term (current) drug therapy
CPT/HCPCS: 36416; 88305; 88312; 88313; J2001; J2704

== ENCOUNTER 2017-11-14 08:08 | Outpatient (CLI) | payer MEDICARE, BC ==
[2017-11-14 08:57] LABS: #Basophils 0.1 thou/uL (0.0-0.2); #Eosinphils 0.3 thou/uL (0.0-0.7); #Lymphocytes 0.6 thou/uL (1.20-3.40); #Monocytes 0.9 thou/uL (0.11-0.59); %Basophils 1.4 % (0.0-1.0); %Eosinophils 4.3 % (0.0-10.0); %Lymphocytes 8.6 % (21.0-51.0); %Monocytes 12.6 % (0.0-10.0); %Neutrophils 73.1 % (42.0-75.0); Hemoglobin 13.5 g/dL (14.0-18.0); Mean Corpuscular HGB CONC 33.6 g/dL (32.0-36.0); Mean Corpuscular Hemoglobin 28.5 pg (27.0-31.0); Mean Corpuscular Volume 84.9 fL (78.0-98.0); Mean Platelet Volume 10.9 fL (7.4-10.4); Platelet Count 134 thou/uL (130-400); RBC Distribution Width 14.2 % (11.5-14.5); Red Blood Cell (RBC) Count 4.71 mill/uL (4.70-6.10); White Blood Cell (WBC) Count 6.8 thou/uL (4.8-10.8)
[2017-11-14 09:04] LABS: ALT (SGPT) 11 U/L (8-55); AST (SGOT) 12 U/L (5-34); Albumin 4.1 g/dL (3.4-4.8); Alkaline Phosphatase 96 U/L (40-150); Anion Gap 14 mmol/L (10-20); BUN (Urea Nitrogen) 20 mg/dL (8.4-25.7); Bilirubin, Total 1.1 mg/dL (0.2-1.2); Calc. Creatinine Clearance 0 mL/min (70-130); Calcium 9.9 mg/dL (7.8-10.44); Carbon Dioxide 27 mmol/L (23-31); Cardiac Risk 3.6 (Less than 4.5); Chloride 107 mmol/L (98-107); Cholesterol 93 mg/dl (< 200 Desired); Estimated GFR-MDRD 74; Globulin 3.2 g/dL (2.4-3.5); Glucose 118 mg/dL (83-110); HDL Cholesterol 26 mg/dL (>60 Neg Risk); LDL Cholesterol, Calculated 49 mg/dL; Potassium 3.9 mmol/L (3.5-5.1); Protein, Total 7.3 g/dL (5.8-8.1); Sodium 144 mmol/L (136-145); Triglycerides 91 mg/dL (Less than 150)
--- NOTE | 2017-11-14 09:33 | RAD ---
2 VIEWS CHEST: Date: 11/14/17 COMPARISON: 03/20/17. HISTORY: Shortness of breath and congestion. FINDINGS: 2 views of the chest show a cardiomediastinal silhouette which is upper limits of normal in size. The re is a small left pleural effusion. The pacemaker is unchanged in position. Degenerative changes are seen in the spine. IMPRESSION: Cardiomegaly with small left pleural effusion. POS: [facility]
[2017-11-14 09:38] LABS: Free T4 (Free Thyroxine) 1.02 ng/dL (0.70-1.48); Thyroid Stimulating Hormone 1.9827 uIU/mL (0.35-4.94)
[2017-11-14 10:11] LABS: Hemoglobin A1c 6.1 % (4.0-6.0)
== END 2017-11-14 08:09 | disposition home or self-care (01) ==
LOC: SCSRAD 08:08
PROVIDERS: ATTEND Family Medicine
DX: M54.9 Dorsalgia, unspecified (principal); E11.59 Type 2 diabetes mellitus with other circulatory complications; J90 Pleural effusion, not elsewhere classified; I51.7 Cardiomegaly
CPT/HCPCS: 36415; 71046; 80053; 80061; 83036; 84439; 84443; 85025

== ENCOUNTER 2017-12-20 16:17 | Outpatient (CLI) | payer MEDICARE, BC ==
--- NOTE | 2017-12-20 19:00 | RAD ---
THREE VIEWS FROM A RIGHT RIB SERIES 12/20/17 HISTORY: Right rib pain for the past month. COMPARISON: None. FINDINGS: There is no displaced right sided rib fractures evident. There is cardiomegaly with mild pulmonary va scular congestion suspicious for tiny right pleural effusion. IMPRESSION: 1. No displaced right sided rib fracture. 2. Findings suggesting mild CHF. Recommend dedicated chest radiograph. POS: [facility]
== END 2017-12-20 16:18 | disposition home or self-care (01) ==
LOC: SCSRAD 16:17
PROVIDERS: ATTEND Family Medicine
DX: R07.81 Pleurodynia (principal)

== ENCOUNTER 2018-03-14 07:41 | Outpatient (CLI) | payer MEDICARE, BC ==
--- NOTE | 2018-03-14 11:56 | PET ---
PET CT: HISTORY: 82-year-old male with esophageal cancer. Patient is status post chemo/radiation therapy in July 2017 . Exam requested for restaging. TECHNIQUE: PET scanning with CT attenuation correction was performed from the base of the brain through the prox imal thighs following the intravenous administration of 11.3 mCi [id number] in the left hand. COMPARISON: PET CT dated 09/13/17. FINDINGS: There is continued hypermetabolic activity in the right parotid gland mass seen on the previous study with a current SUV of 11 (previously 8.1). No mary hypermetabolism is seen in the neck, chest, abdo men, or pelvis. No hypermetabolic pulmonary nodules, liver, adrenal, or skeletal lesions are seen. Th e hypermetabolic mass associated with the lesser curvature of the stomach is again seen with a SUV of 12 (previously 5.6). There is physiologic activity in the GI and tracts, heart, and the visualized portions of the brai n. The CT scan used for attenuation correction demonstrates bilateral pleural effusions, left larger marta n right. There has been interval increase in size of the pleural effusions since the last study. No a scites is seen. IMPRESSION: Redemonstration of hypermetabolic lesions in the right parotid gland and upper abdomen, with interval increase in SUVs since 09/13/17. No new lesions are identified. POS: [facility]
== END 2018-03-14 07:42 | disposition home or self-care (01) ==
LOC: PET 07:41
PROVIDERS: ATTEND Internal Medicine Hematology & Oncology
DX: C15.9 Malignant neoplasm of esophagus, unspecified (principal); K11.8 Other diseases of salivary glands
CPT/HCPCS: 78815; A9552

== ENCOUNTER 2018-04-08 11:26 | Inpatient (IN) | payer MEDICARE, BC ==
[2018-04-08 12:50] LABS: #Eosinphils 0.3 thou/uL (0.0-0.7); #Lymphocytes 0.8 thou/uL (1.20-3.40); #Monocytes 1.1 thou/uL (0.11-0.59); #Neutrophils 6.8 thou/uL (1.40-6.50); %Basophils 0.1 % (0.0-1.0); %Lymphocytes 8.7 % (21.0-51.0); %Neutrophils 76.2 % (42.0-75.0); Hemoglobin 6.5 g/dL (14.0-18.0); Mean Corpuscular HGB CONC 30.5 g/dL (32.0-36.0); Mean Corpuscular Hemoglobin 24.5 pg (27.0-31.0); Mean Corpuscular Volume 80.4 fL (78.0-98.0); Mean Platelet Volume 10.8 fL (7.4-10.4); Platelet Count 150 thou/uL (130-400); RBC Distribution Width 17.6 % (11.5-14.5); Red Blood Cell (RBC) Count 2.64 mill/uL (4.70-6.10)
[2018-04-08 13:21] LABS: ALT (SGPT) 7 U/L (8-55); AST (SGOT) 12 U/L (5-34); Albumin 3.7 g/dL (3.4-4.8); Alkaline Phosphatase 102 U/L (40-150); Anion Gap 14 mmol/L (10-20); BUN (Urea Nitrogen) 26 mg/dL (8.4-25.7); Bilirubin, Total 0.7 mg/dL (0.2-1.2); Calc. Creatinine Clearance 0 mL/min (70-130); Calcium 9.1 mg/dL (7.8-10.44); Carbon Dioxide 22 mmol/L (23-31); Chloride 108 mmol/L (98-107); Estimated GFR-MDRD 62; Globulin 2.8 g/dL (2.4-3.5); Glucose 101 mg/dL (83-110); Potassium 4.7 mmol/L (3.5-5.1); Protein, Total 6.5 g/dL (5.8-8.1); Sodium 139 mmol/L (136-145)
[2018-04-08 14:35] LABS: INR-International Normal Ratio 1.5; Prothrombin Time 18.2 SEC (12.0-14.7)
[2018-04-08 14:36] LABS: PTT 47.7 SEC (22.9-36.1)
[2018-04-08 15:04] LABS: CKMB 2.4 ng/mL (0-6.6)
[2018-04-08] MEDS ORDERED: Nitroglycerin 0.4 MG TAB (25 Tab Bottle) SL SCH (18:45)
[2018-04-08] MEDS ORDERED: Nitroglycerin 0.4 MG TAB (25 Tab Bottle) SL PRN (19:00)
[2018-04-08] MEDS ORDERED: Dextrose 5% in Water 1,000 ML IV PRN (19:44)
[2018-04-08] MEDS ORDERED: Ondansetron ODT 4 MG TAB PO PRN (19:44)
[2018-04-08] MEDS ORDERED: Furosemide 20 MG/2 ML VIAL IVP SCH (19:44)
[2018-04-08] MEDS ORDERED: Dextrose 50% Abboject 50 ML SYRINGE SLOW IVP PRN (19:44)
[2018-04-08] MEDS ORDERED: Ondansetron PF 4 MG/2 ML Vial IVP PRN (19:44)
[2018-04-08 20:02] VITALS: BMI 37.0
[2018-04-08] MEDS: Pantoprazole 40 MG VIAL IVP SCH (20:36)
[2018-04-08] MEDS: Carvedilol 25 MG TAB PO SCH (20:36)
[2018-04-09 05:41] LABS: #Eosinphils 0.2 thou/uL (0.0-0.7); #Lymphocytes 0.6 thou/uL (1.20-3.40); #Monocytes 1.1 thou/uL (0.11-0.59); #Neutrophils 7.1 thou/uL (1.40-6.50); %Eosinophils 2.7 % (0.0-10.0); %Lymphocytes 6.9 % (21.0-51.0); %Monocytes 11.9 % (0.0-10.0); %Neutrophils 78.5 % (42.0-75.0); Hemoglobin 7.2 g/dL (14.0-18.0); Mean Corpuscular HGB CONC 31.9 g/dL (32.0-36.0); Mean Corpuscular Hemoglobin 25.9 pg (27.0-31.0); Mean Corpuscular Volume 81.2 fL (78.0-98.0); Mean Platelet Volume 11.2 fL (7.4-10.4); Platelet Count 141 thou/uL (130-400); RBC Distribution Width 18.3 % (11.5-14.5); Red Blood Cell (RBC) Count 2.79 mill/uL (4.70-6.10); White Blood Cell (WBC) Count 9.1 thou/uL (4.8-10.8)
[2018-04-09 06:05] LABS: Anion Gap 9 mmol/L (10-20); BUN (Urea Nitrogen) 22 mg/dL (8.4-25.7); Calc. Creatinine Clearance 93 mL/min (70-130); Calcium 8.7 mg/dL (7.8-10.44); Carbon Dioxide 28 mmol/L (23-31); Chloride 107 mmol/L (98-107); Estimated GFR-MDRD 72; Glucose 76 mg/dL (83-110); Magnesium 1.9 mg/dL (1.6-2.6); Potassium 3.8 mmol/L (3.5-5.1); Sodium 140 mmol/L (136-145)
[2018-04-09] MEDS: Pantoprazole 40 MG VIAL IVP SCH ×2 (07:49→20:20)
[2018-04-09] MEDS: Carvedilol 25 MG TAB PO SCH ×2 (07:49→20:19)
[2018-04-09] MEDS ORDERED: Ondansetron HCl/PF 4 MG/2 ML Vial IVP PRN (15:12)
--- NOTE | 2018-04-09 16:04 | PDOC.PN ---
- Subjective Encounter Start Date: 04/09/18 Encounter Start Time: 13:30 - Objective Resuscitation Status - Order Detail: 04/08/18 18:21 Resuscitation Status Routine Resuscitation Status: FULL: Full Resuscitation MAR Reviewed: Yes Vital Signs & Weight: Vital Signs (12 hours) Temp Pulse Resp BP Pulse Ox 04/09/18 11:00 98.6 F 91 18 123/58 L 96 04/09/18 08:00 97.6 F 70 18 132/69 95 Weight Admit Weight 251 lb 1 oz Weight 251 lb 1 oz I&O: 04/08/18 04/09/18 04/10/18 06:59 06:59 06:59 Intake Total 830 Balance 830 Result Diagrams: 04/09/18 04:34 04/09/18 04:34 Additional Labs: Accuchecks 04/09/18 04/09/18 04/08/18 11:31 05:03 19:46 POC Glucose 100 95 135 H Phys Exam - Physical Examination Constitutional: NAD HEENT: PERRLA, moist MMs, sclera anicteric, oral pharynx no lesions Neck: no nodes, no JVD, supple, full ROM Respiratory: no rales, no rhonchi exp whezezing and prolonged expiration Cardiovascular: RRR, no rub Gastrointestinal: soft, non-tender, no distention, positive bowel sounds Musculoskeletal: edema present Neurological: non-focal, normal sensation, moves all 4 limbs Lymphatic: no nodes Psychiatric: normal affect, A&O x 3 Skin: no rash, normal turgor, cap refill <2 seconds Dx/Plan (1) UGIB (upper gastrointestinal bleed) Code(s): K92.2 - GASTROINTESTINAL HEMORRHAGE, UNSPECIFIED Status: Acute (2) Chronic systolic CHF (congestive heart failure) Code(s): I50.22 - CHRONIC SYSTOLIC (CONGESTIVE) HEART FAILURE Status: Acute (3) Anemia due to blood loss, acute Code(s): D62 - ACUTE POSTHEMORRHAGIC ANEMIA Status: Acute Comment: symptomatic anemia secondary to acute/subacute loss, hold all NSAIDs and anticoagulation, Protonix 40mg daily, GI consult (4) Esophageal adenocarcinoma Code(s): C15.9 - MALIGNANT NEOPLASM OF ESOPHAGUS, UNSPECIFIED Status: Acute Comment: Consult Gen Surgery and Oncology service for options (5) CAD (coronary artery disease) Code(s): I25.10 - ATHSCL HEART DISEASE OF [place] CORONARY ARTERY W/O ANG PCTRS Status: Chronic (6) CKD (chronic kidney disease), stage III Code(s): N18.3 - CHRONIC KIDNEY DISEASE, STAGE 3 (MODERATE) Status: Chronic Comment: Watch renal function, avoid nephrotoxins and limit contrast media exposure (7) Chronic anticoagulation Code(s): Z79.01 - BULK DRIVER (CURRENT) USE OF ANTICOAGULANTS Status: Chronic Comment: See above (8) Chronic atrial fibrillation Code(s): I48.2 - CHRONIC ATRIAL FIBRILLATION Status: Chronic Comment: Rate variable, hold anticoagulation due to GI bleed - Plan cont current plan of care, plan discussed w/ family, out of bed/ambulate * . to [facility] with Dr Haley today, follow up on findings
[2018-04-09] MEDS ORDERED: PROPOFOL 200 MG/20 ML VIAL ONE (17:00)
[2018-04-09] MEDS ORDERED: Lidocaine 1% PF 5 ML VIAL ONE (17:00)
[2018-04-09] MEDS: Acetaminophen 325 MG TAB PO PRN (20:19)
[2018-04-10] MEDS: Acetaminophen 325 MG TAB PO PRN ×2 (02:16→22:29)
--- NOTE | 2018-04-10 04:12 | CON ---
DATE OF CONSULTATION: 04/09/2018 REASON FOR CONSULT: Melena. HISTORY OF PRESENT ILLNESS: Mr. Sinclair is an 82-year-old gentleman who was admitted to the hospital since 04/08/2018 at 1725 hours for evaluation of weakness. His daughter and the patient give most of the history. Apparently, since , he has not really been able to walk. He has been very weak and he thinks this may have been related to bleeding as his stools have been black for about three months. Additionally, he notes occasional pinching-like pain in the left upper quadrant, right upper quadrant, and the bottom of his ribs. He has noted no nausea or vomiting. He has had no diarrhea. He has had no fever. He denies any overt shortness of breath. His appetite has been diminished. His main complaint is weakness. REVIEW OF SYSTEMS: CONSTITUTIONAL: Negative for fever, chills, anorexia, nausea, vomiting, and diarrhea. HEENT: Negative. ENT: Negative. CARDIOVASCULAR: Occasionally, he has some chest discomfort, but denies any palpitations. RESPIRATORY: He has some dyspnea on exertion. GI: Reports black stools. Denies nausea, vomiting, diarrhea, dysphagia, odynophagia. : Negative. MUSCULOSKELETAL: Negative for arthralgias. SKIN: Negative for rashes. NEUROLOGIC: Nonfocal. Denies any recent TIA-like symptoms or strokes. He states he his right eye sags, but this has been chronic for many years, which is his daughter confirms. Central nervous system as per HPI PAST MEDICAL HISTORY: Renal artery aneurysm, reflux, skin cancer removal in the right face, tremors, cardiac arrhythmias, AFib, diabetes type 2, hypertension, TIA, CVA in 2014, esophageal cancer, adenocarcinoma diagnosed 05/23/2017 showed chemoradiation. 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 This apparently showed up on one of his PET scans and the family knows this is not going to be treated. PAST SURGICAL HISTORY: Pacemaker, left foot surgery, right eye surgery, cardiac stents x2, cancer removed from right face, endoscopy in April 2017 that was EGD with biopsy. 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 After treatment, the patient underwent a followup EGD on 10/15/2017. These were showing Monk's, no residual cancer, 1 cm gastric polyp on the antral side of the incision showed it was biopsied and removed. SOCIAL HISTORY: The patient drinks socially alcohol once a week, is a former smoker, stopped about 10 years ago. MEDICATIONS: At home, 1. Carvedilol. 2. Atorvastatin. 3. Furosemide. 4. Plavix. 5. Ranitidine. 6. Gabapentin. 7. Eliquis. 8. Insulin. Medications here: 1. Tylenol. 2. Coreg. 3. Glucagon. 4. Insulin. 5. Nitroglycerin. 6. Zofran. 7. Protonix. REVIEW OF SYSTEMS: Negative for dysphagia or odynophagia. Review of systems is per HPI. PHYSICAL EXAMINATION: VITAL SIGNS: Temperature is 98.1, pulse 91, blood pressure is 123/58. GENERAL: He is elderly, is frail, seems somewhat labored with his breathing, is in no overt distress. SKIN: Warm and dry. NECK: Supple without any obvious scarring or right side. LUNGS: Clear. HEART: Regular rate and rhythm. No rubs, gallops, or murmurs. ABDOMEN: Soft, nontender without palpable hepatosplenomegaly. EXTREMITIES: Revealed no clubbing, cyanosis, or edema. LABORATORY STUDIES: Hemoglobin was 6.5 on admission, it was 9.5 on 03/19/2018. It is now 7.2 after transfusion. White count was 6 on admission, platelet count 110 now, 9.1 and 141, MCV was 83. INR is 1.5. BUN and creatinine are 26 and 1.26 on admission, iron was 13. ASSESSMENT: Reported melena with drop in hemoglobin from baseline of around 9 to about 6, now status post transfusion, hemoglobin 7.2. He has positive occult blood. The stool has been dark over several months. This does not seem to be an acute issue. 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 It is unclear when the patient's last colonoscopy. PLAN: With the melena and upper endoscopy findings in the past, we will proceed with EGD today. If this is negative, we will consider colonoscopy tomorrow or later. Job ID: [id number]
--- NOTE | 2018-04-10 04:44 | OP ---
DATE OF PROCEDURE: 04/09/2018 PROCEDURE PERFORMED: Esophagogastroduodenoscopy with cautery of arteriovenous malformations. PREPROCEDURE DIAGNOSES: 1. History of melena, Hemoccult-positive stools, and anemia. 2. Prior history of Monk esophagus with last endoscopy in 09/2017. 3. Prior history of esophageal cancer, status post treatment with radiation chemotherapy. No evidence of active disease, 10/15/2017. POSTPROCEDURE DIAGNOSES: 1. Monk esophagus. No evidence of ulcers, erosions, or active bleeding sites. 2. Stomach notable for multiple arteriovenous malformations, nonbleeding in the proximal stomach, cardia region, and just below the incisura. These were cauterized with 7-Vietnamese heater probe with good ablation. 3. No masses were seen in the stomach. 4. Normal duodenum in the third portion. ANESTHESIA: TIVA. DESCRIPTION OF PROCEDURE: The patient was informed of the risks, benefits, and possible complications of the endoscopy including perforation, bleeding, reaction to medication,aspiration. Informed consent was obtained. The patient was brought to the endoscopy suite, where he was sedated in the gradual fashion. Once he was comfortable, a bite block was placed, . The endoscope was advanced to the esophagus, stomach, second and third portions of the duodenum. There was a small hiatal hernia present. Distal esophagus with short-segment Monk's from 41 to 39 cm. There was no evidence of erosions or ulcers in this area. There was no evidence of a bleeding site seen or new malignancies. The remainder of the esophagus appeared normal. The stomach was entirely normal except for AV malformations just at the level of the incisura and proximal, there were 6 total, none were actively bleeding. Some were quite large. These were all cauterized with 7-Vietnamese heater probe ablation. On full distention of the stomach, there was no evidence of gastric masses or lesions. The antrum of the stomach was evaluated. The bulb and duodenum in the third part were normal. The scope was removed. The patient tolerated the procedure well with no complications. RECOMMENDATIONS: If there continues to be issues with anemia, consider colonoscopy. If this patient has not had one recently, we will check clinic records. Job ID: [id number]
[2018-04-10 05:24] LABS: #Lymphocytes 0.6 thou/uL (1.20-3.40); #Monocytes 1.5 thou/uL (0.11-0.59); #Neutrophils 9.3 thou/uL (1.40-6.50); %Basophils 0.1 % (0.0-1.0); %Eosinophils 0.2 % (0.0-10.0); %Lymphocytes 5.2 % (21.0-51.0); %Monocytes 12.7 % (0.0-10.0); %Neutrophils 81.8 % (42.0-75.0); Mean Corpuscular HGB CONC 31.6 g/dL (32.0-36.0); Mean Corpuscular Hemoglobin 25.6 pg (27.0-31.0); Mean Corpuscular Volume 80.9 fL (78.0-98.0); Mean Platelet Volume 11.5 fL (7.4-10.4); Platelet Count 128 thou/uL (130-400); RBC Distribution Width 19.1 % (11.5-14.5); Red Blood Cell (RBC) Count 2.75 mill/uL (4.70-6.10); White Blood Cell (WBC) Count 11.4 thou/uL (4.8-10.8)
[2018-04-10 05:39] LABS: Anion Gap 12 mmol/L (10-20); BUN (Urea Nitrogen) 26 mg/dL (8.4-25.7); Calc. Creatinine Clearance 71 mL/min (70-130); Calcium 8.6 mg/dL (7.8-10.44); Carbon Dioxide 25 mmol/L (23-31); Chloride 105 mmol/L (98-107); Estimated GFR-MDRD 53; Glucose 128 mg/dL (83-110); Magnesium 1.9 mg/dL (1.6-2.6); Potassium 3.9 mmol/L (3.5-5.1); Sodium 138 mmol/L (136-145)
[2018-04-10] MEDS: Carvedilol 25 MG TAB PO SCH ×2 (09:10→20:57)
[2018-04-10] MEDS: Pantoprazole 40 MG VIAL IVP SCH ×2 (09:11→20:45)
[2018-04-10] MEDS: HumaLOG 300 UNITS/3 ML VIAL SC PRN (12:51)
--- NOTE | 2018-04-10 13:24 | PRG ---
DATE OF SERVICE: 04/10/2018 SUBJECTIVE: Mr. Sinclair has had no blood in the stool today. He had a small hard stool. He has had no nausea or vomiting. He has been feeling weak and has had trouble walking. OBJECTIVE: VITAL SIGNS: Temperature 98.1, pulse 68, and blood pressure 114/68. GENERAL: He is in no acute distress. He is awake and alert. LUNGS: Clear to auscultation bilaterally. HEART: Regular rate and rhythm. ABDOMEN: Soft, nontender, and nondistended. Bowel sounds present. EXTREMITIES: +1 pitting lower extremity edema. LABORATORY DATA: His hemoglobin today is 7.0, hemoglobin yesterday morning 7.2. He did receive 2 units of transfusion on 04/08/2018. Hemoglobin prior to the transfusion was 6.5. IMPRESSION: 1. Gastrointestinal bleed. His hemoglobin is stable today. He underwent electrocautery of arteriovenous malformation in the stomach with good hemostasis noted. We will recheck his hemoglobin tomorrow. He is scheduled to get a transfusion. If his hemoglobin responds appropriately to transfusion, then no further GI intervention should be necessary at that point. If he continues to have signs of recurrent bleeding, then we might need to consider colonoscopy in the future. He has not had a colonoscopy in last 10 years. For now, he has an obvious bleeding source that was treated yesterday and we will not pursue colonoscopy immediately. 2. History of esophageal cancer, status post treatment. He is followed by Oncology. He had a PET scan back in February that again shows some uptake in the lesser curvature of the stomach. Endoscopy in those areas have been negative for mucosal source for those findings. RECOMMENDATIONS: 1. Continue proton pump inhibitor. 2. Hold Eliquis for 5 to 7 days. 3. Recheck hemoglobin tomorrow morning. He has planned for transfusion today according to the family. He is on iron. Job ID: [id number]
--- NOTE | 2018-04-10 13:59 | PDOC.PN ---
- Subjective Encounter Start Date: 04/10/18 Encounter Start Time: 09:45 - Objective Resuscitation Status - Order Detail: 04/08/18 18:21 Resuscitation Status Routine Resuscitation Status: FULL: Full Resuscitation MAR Reviewed: Yes Vital Signs & Weight: Vital Signs (12 hours) Temp Pulse Resp BP BP Pulse Ox 04/10/18 13:36 98.7 F 60 20 114/68 94 L 04/10/18 08:05 98.1 F 68 20 114/68 97 04/10/18 08:00 97 04/10/18 04:43 98.1 F 66 20 107/65 98 Weight Admit Weight 251 lb 1 oz Weight 251 lb 1 oz I&O: 04/09/18 04/10/18 04/11/18 06:59 06:59 06:59 Intake Total 830 1440 0 Output Total 600 Balance 830 840 0 Result Diagrams: 04/10/18 04:34 04/10/18 04:34 Additional Labs: Accuchecks 04/10/18 04/09/18 04/09/18 04:43 21:49 16:50 POC Glucose 155 H 135 H 97 Dx/Plan (1) UGIB (upper gastrointestinal bleed) Code(s): K92.2 - GASTROINTESTINAL HEMORRHAGE, UNSPECIFIED Status: Acute (2) Chronic systolic CHF (congestive heart failure) Code(s): I50.22 - CHRONIC SYSTOLIC (CONGESTIVE) HEART FAILURE Status: Acute (3) Anemia due to blood loss, acute Code(s): D62 - ACUTE POSTHEMORRHAGIC ANEMIA Status: Acute Comment: symptomatic anemia secondary to acute/subacute loss, hold all NSAIDs and anticoagulation, Protonix 40mg daily, GI consult (4) Esophageal adenocarcinoma Code(s): C15.9 - MALIGNANT NEOPLASM OF ESOPHAGUS, UNSPECIFIED Status: Acute Comment: Consult Gen Surgery and Oncology service for options (5) CAD (coronary artery disease) Code(s): I25.10 - ATHSCL HEART DISEASE OF [place] CORONARY ARTERY W/O ANG PCTRS Status: Chronic (6) CKD (chronic kidney disease), stage III Code(s): N18.3 - CHRONIC KIDNEY DISEASE, STAGE 3 (MODERATE) Status: Chronic Comment: Watch renal function, avoid nephrotoxins and limit contrast media exposure (7) Chronic anticoagulation Code(s): Z79.01 - WR[employer] SHE[employer]ER (CURRENT) USE OF ANTICOAGULANTS Status: Chronic Comment: See above (8) Chronic atrial fibrillation Code(s): I48.2 - CHRONIC ATRIAL FIBRILLATION Status: Chronic Comment: Rate variable, hold anticoagulation due to GI bleed - Plan * .
--- NOTE | 2018-04-10 15:10 | EKG ---
Test Reason : WEAKNESS Blood Pressure : / mmHG Vent. Rate : 070 BPM Atrial Rate : 060 BPM P-R Int : 000 ms QRS Dur : 146 ms QT Int : 492 ms P-R-T Axes : 000 -53 110 degrees QTc Int : 531 ms Ventricular-paced rhythm with occasional supraventricular complexes and with occasional Premature josh tricular complexes Abnormal ECG Confirmed by SWATI BECK ([id number]), magazine editor STEVEN POTTER ([id number]) on 04/10/2018 3:09:44 PM Referred By: Confirmed By:SWATI BECK
[2018-04-11] MEDS ORDERED: Gabapentin 300 MG CAP PO SCH (01:45)
[2018-04-11 06:07] LABS: #Eosinphils 0.1 thou/uL (0.0-0.7); #Lymphocytes 0.7 thou/uL (1.20-3.40); #Monocytes 1.5 thou/uL (0.11-0.59); #Neutrophils 8.2 thou/uL (1.40-6.50); %Basophils 0.3 % (0.0-1.0); %Eosinophils 1.1 % (0.0-10.0); %Lymphocytes 6.3 % (21.0-51.0); %Monocytes 14.1 % (0.0-10.0); %Neutrophils 78.2 % (42.0-75.0); Hemoglobin 7.7 g/dL (14.0-18.0); Mean Corpuscular HGB CONC 31.5 g/dL (32.0-36.0); Mean Corpuscular Hemoglobin 25.9 pg (27.0-31.0); Mean Corpuscular Volume 82.1 fL (78.0-98.0); Mean Platelet Volume 11.5 fL (7.4-10.4); Platelet Count 133 thou/uL (130-400); RBC Distribution Width 18.4 % (11.5-14.5); Red Blood Cell (RBC) Count 2.99 mill/uL (4.70-6.10); White Blood Cell (WBC) Count 10.5 thou/uL (4.8-10.8)
[2018-04-11] MEDS ORDERED: Ferrous Sulfate 325 MG TAB PO SCH (08:00)
[2018-04-11] MEDS: Gabapentin 300 MG CAP PO SCH ×2 (08:06→14:11)
[2018-04-11] MEDS: Pantoprazole 40 MG VIAL IVP SCH (08:07)
[2018-04-11] MEDS: Carvedilol 25 MG TAB PO SCH ×2 (08:07→10:09)
[2018-04-11 11:18] VITALS: TEMP 98.5
[2018-04-11] MEDS: HumaLOG 300 UNITS/3 ML VIAL SC PRN ×2 (11:38→17:01)
[2018-04-11 15:28] VITALS: BP 135/71
== END 2018-04-11 18:42 | DRG 378 ==
LOC: ERS 11:26 → T4-A 17:25
PROVIDERS: ADMIT Internal Medicine Infectious Disease; ATTEND Internal Medicine Infectious Disease
PROC: 30233N1 Transfusion of Nonautologous Red Blood Cells into Peripheral Vein, Percutaneous Approach (ICD-10-PCS; 2018-04-08)
PROC: 0D568ZZ Destruction of Stomach, Via Natural or Artificial Opening Endoscopic (ICD-10-PCS; principal; 2018-04-09)
DX: K31.811 Angiodysplasia of stomach and duodenum with bleeding (principal); I50.22 Chronic systolic (congestive) heart failure; D62 Acute posthemorrhagic anemia; I13.0 Hypertensive heart and chronic kidney disease with heart failure and stage 1 through stage 4 chronic kidney disease, or unspecified chronic kidney disease; K22.70 Barrett's esophagus without dysplasia; I48.2 Chronic atrial fibrillation; K21.9 Gastro-esophageal reflux disease without esophagitis; K44.9 Diaphragmatic hernia without obstruction or gangrene; E11.22 Type 2 diabetes mellitus with diabetic chronic kidney disease; N18.3 Chronic kidney disease, stage 3 (moderate); I25.10 Atherosclerotic heart disease of native coronary artery without angina pectoris; Z86.73 Personal history of transient ischemic attack (TIA), and cerebral infarction without residual deficits; Z85.01 Personal history of malignant neoplasm of esophagus; Z95.0 Presence of cardiac pacemaker; Z87.891 Personal history of nicotine dependence; Z79.01 Long term (current) use of anticoagulants; Z79.02 Long term (current) use of antithrombotics/antiplatelets; Z79.4 Long term (current) use of insulin
CPT/HCPCS: 36415; 36416; 36430; 80048; 80053; 82553; 83735; 83880; 84484; 85025; 85610; 85730; 86850; 86900; 86901; 93005; 94760; C9113; G8978-GP-CL; G8979-GP-CI; G8987-GO-CM; G8988-GO-CK; J1940; J2001; J2704; P9016